=== PATIENT | female | born 1960 | race Caucasian/White ===

== ENCOUNTER 2018-01-20 21:02 | Inpatient (IN) | payer MEDICAID ==
[~2018-01-20] VITALS: Ht 154.9 cm; Wt 82.0 kg
[2018-01-20 21:46] VITALS: BP 171/77; PULSE 75; RESP 16; TEMP 98.2; O2SAT 100
[2018-01-20] MEDS ORDERED: METF500T PO (23:42)
[2018-01-20] MEDS ORDERED: GLIM2TAB PO (23:42)
[2018-01-20 23:51] VITALS: BP 188/86; PULSE 76; RESP 20; O2SAT 99
[2018-01-21] VITALS (10 sets, daily range): BP systolic 113–144; BP diastolic 57–78; PULSE 80–105; RESP 17–20; TEMP 98–99.5; O2SAT 92–99
[2018-01-21] MEDS ORDERED: SODIUM CHLOR 0.9% 1000 ML INJ 1,000 ML IV ONE
[2018-01-21] MEDS ORDERED: FAMOTIDINE 20 MG/2 ML VIAL IV PUSH SCH
[2018-01-21 00:26] LABS: AUTOMATED NEUTROPHIL # 9.5 TH/MM3 (1.8-7.7); BASOPHIL # 0.1 TH/MM3 (0-0.2); BASOPHIL % 0.6 % (0.0-2.0); EOSINOPHIL # 0.1 TH/MM3 (0-0.4); EOSINOPHIL % 0.6 % (0.0-4.0); HEMATOCRIT 44.2 % (35.0-46.0); HEMOGLOBIN 15.2 GM/DL (11.6-15.3); LYMPHOCYTE # 2.3 TH/MM3 (1.0-4.8); MEAN CELL VOLUME 86.1 FL (80.0-100.0); MEAN CORPUSCULAR HEMOGLOBIN 29.7 PG (27.0-34.0); MEAN CORPUSCULAR HGB CONC 34.4 % (32.0-36.0); MEAN PLATELET VOLUME 10.2 FL (7.0-11.0); MONO % 5.4 % (0.0-8.0); MONOCYTE # 0.7 TH/MM3 (0-0.9); NEUT % 75.4 % (16.0-70.0); PLATELET COUNT 306 TH/MM3 (150-450); RED BLOOD COUNT 5.14 MIL/MM3 (4.00-5.30); RED CELL DISTRIBUTION WIDTH 14.3 % (11.6-17.2); WHITE BLOOD COUNT 12.5 TH/MM3 (4.0-11.0)
[2018-01-21 00:37] LABS: ALBUMIN 3.9 GM/DL (3.4-5.0); ALT (GPT) 29 U/L (10-53); AST (GOT) 16 U/L (15-37); BICARBONATE 26.9 MEQ/L (21.0-32.0); BLOOD UREA NITROGEN 14 MG/DL (7-18); CALCIUM 9.4 MG/DL (8.5-10.1); CHLORIDE 101 MEQ/L (98-107); CREATININE 0.81 MG/DL (0.50-1.00); GLOMERULAR FILTRATION RATE 73 ML/MIN (>89); GLUCOSE,RANDOM 227 MG/DL (74-106); SODIUM (NA) 139 MEQ/L (136-145)
[2018-01-21 00:41] LABS: ALKALINE PHOSPHATASE 156 U/L (45-117); TOTAL BILIRUBIN ADULT 0.4 MG/DL (0.2-1.0); TOTAL PROTEIN 7.9 GM/DL (6.4-8.2); TROPONIN I LESS THAN 0.02 NG/ML (0.02-0.05)
[2018-01-21] MEDS ORDERED: MORPHINE SULFATE 4 MG/ML INJ IV PUSH ONE ×2 (00:45→09:30)
--- NOTE | 2018-01-21 00:52 | PD ---
HPI Chief Complaint: Abdominal Pain Time Seen by Provider: 23:33 Travel History International Travel<30 days: No Contact w/Intl Traveler<30days: No Traveled to known affect area: No History of Present Illness HPI Patient is a 57-year-old female who woke up this morning and had epigastric pain that was constant continuous all day long she took Tums it did not alleviate her pain. She has no history of gastritis or GERD she does not take omeprazole on a daily basis and she has never had an issue with this before. She denies pancreatitis history she denies gallbladder history she denies trauma she has no diarrhea she has not moved her bowels today. Pain is burning severe and she feels nausea she vomited in triage and she said she vomited a few times today. She has no surgical history on her abdomen she has diabetes metformin and sulfonylurea pill otherwise she is healthy and without significant systemic illness. Pain is severe 10 out of 10 when it comes and it is squeezing like epigastric pain she has not seen another doctor for this and the Tums did not relieve her pain PFSH Past Medical History Diabetes: Yes (DMII) Patient Takes Glucophage: No ?: Not Past Surgical History Surgical History: No Previous Surgery Social History Alcohol Use: No Tobacco Use: No Substance Use: No Allergies-Medications (Allergen,Severity, Reaction): Coded Allergies: Penicillins (Verified Allergy, Unknown, 01/20/18) pt states its been decades, unsure of reaction. Reported Meds & Prescriptions Reported Meds & Active Scripts Active Pepcid (Famotidine) 20 Mg Tab 20 Mg PO BID Zofran Odt (Ondansetron Odt) 4 Mg Tab 4 Mg SL Q6HR PRN Reported Glimepiride 2 Mg Tab 2 Mg PO BIDAC Metformin (Metformin HCl) 500 Mg Tab 500 Mg PO BIDPC Review of Systems Except as stated in HPI: all other systems reviewed are Neg Physical Exam Narrative GENERAL: Patient appears to be in pain and has epigastric periumbilical pain SKIN: Warm and dry. Mildly diaphoretic HEAD: Atraumatic. Normocephalic. EYES: Pupils equal and round. No scleral icterus. No injection or drainage. ENT: No nasal bleeding or discharge. Mucous membranes pink and moist. NECK: Trachea midline. No JVD. CARDIOVASCULAR: Regular rate and rhythm. RESPIRATORY: No accessory muscle use. Clear to auscultation. Breath sounds equal bilaterally. GASTROINTESTINAL: Abdomen tender epigastric and periumbilical pain soft, mildly obese nondistended. Hepatic and splenic margins not palpable. MUSCULOSKELETAL: Extremities without clubbing, cyanosis, or edema. No obvious deformities. NEUROLOGICAL: Awake and alert. No obvious cranial nerve deficits. Motor grossly within normal limits. Five out of 5 muscle strength in the arms and legs. Normal speech. PSYCHIATRIC: Appropriate mood and affect; insight and judgment normal. Data Data Last Documented VS Vital Signs Date Time Temp Pulse Resp B/P (MAP) Pulse Ox O2 Delivery O2 Flow Rate FiO2 01/21/18 10:02 85 20 113/57 (75) 92 Room Air 01/20/18 21:46 98.2 Orders Orders Famotidine Inj (Pepcid Inj) (01/21/18 00:00) Ondansetron Inj (Zofran Inj) (01/21/18 00:00) Sodium Chlor 0.9% 1000 Ml Inj (Ns 1000 M (01/21/18 00:00) Electrocardiogram (01/20/18 23:54) Complete Blood Count With Diff (01/20/18 23:54) Comprehensive Metabolic Panel (01/20/18 23:54) Lipase (01/20/18 23:54) Troponin I (01/21/18 00:04) Morphine Inj (Morphine Inj) (01/21/18 00:45) Abdomen, Flat & Upright (01/21/18 ) Lactulose Liq (Lactulose Liq) (01/21/18 01:45) Diatrizoate Liq ( Gastroview Liq) (01/21/18 01:45) Ct Abd/Pel W Iv Contrast(Rout) (01/21/18 ) Oral Contrast - Adult (01/21/18 01:57) Ondansetron Inj (Zofran Inj) (01/21/18 02:45) Ketorolac Inj (Toradol Inj) (01/21/18 04:30) Urinalysis - C+S If Indicated (01/21/18 04:27) Iohexol 350 Inj (Omnipaque 350 Inj) (01/21/18 04:50) Urine Culture (01/21/18 04:32) Us Abdomen Gallbladder (01/21/18 ) Ciprofloxacin 400 Mg Premix (Cipro 400 M (01/21/18 09:30) Metronidazole 500 Mg Inj (Flagyl 500 Mg (01/21/18 09:30) Morphine Inj (Morphine Inj) (01/21/18 09:30) Admit Order (Ed Use Only) (01/21/18 ) Vital Signs (Adult) Q4H (01/21/18 10:12) Diet Npo (01/21/18 Lunch) Activity Oob With Assistance (01/21/18 10:12) Comprehensive Metabolic Panel (01/22/18 06:00) Free Thyroxine (T4) (01/22/18 06:00) Hemoglobin (Hgb) A1c (01/22/18 06:00) Magnesium (Mg) (01/22/18 06:00) Phosphorus (Po4) (01/22/18 06:00) Thyroid Stimulating Hormone (01/22/18 06:00) Complete Blood Count With Diff (01/22/18 06:00) Bedside Glucose FELIPE.CSUGAR&03 (01/21/18 10:14) Blood Glucose Goal (Criteria) (01/21/18 10:14) Hypoglycemia 70 Mg/Dl Or < (01/21/18 10:14) Notify Dr: Other (01/21/18 10:14) Dextrose 50% In [place]ucky (Vial) Inj (D50w (Vi (01/21/18 10:15) Glucagon Inj (Glucagon Inj) (01/21/18 10:15) Case Management Consult (01/21/18 ) Insulin Aspart Supplemtl Scale (Novolog (01/21/18 12:00) Labs Laboratory Tests Test 01/21/18 00:04 01/21/18 04:32 White Blood Count 12.5 TH/MM3 Red Blood Count 5.14 MIL/MM3 Hemoglobin 15.2 GM/DL Hematocrit 44.2 % Mean Corpuscular Volume 86.1 FL Mean Corpuscular Hemoglobin 29.7 PG Mean Corpuscular Hemoglobin Concent 34.4 % Red Cell Distribution Width 14.3 % Platelet Count 306 TH/MM3 Mean Platelet Volume 10.2 FL Neutrophils (%) (Auto) 75.4 % Lymphocytes (%) (Auto) 18.0 % Monocytes (%) (Auto) 5.4 % Eosinophils (%) (Auto) 0.6 % Basophils (%) (Auto) 0.6 % Neutrophils # (Auto) 9.5 TH/MM3 Lymphocytes # (Auto) 2.3 TH/MM3 Monocytes # (Auto) 0.7 TH/MM3 Eosinophils # (Auto) 0.1 TH/MM3 Basophils # (Auto) 0.1 TH/MM3 CBC Comment DIFF FINAL Differential Comment Blood Urea Nitrogen 14 MG/DL Creatinine 0.81 MG/DL Random Glucose 227 MG/DL Total Protein 7.9 GM/DL Albumin 3.9 GM/DL Calcium Level 9.4 MG/DL Alkaline Phosphatase 156 U/L Aspartate Amino Transf (AST/SGOT) 16 U/L Alanine Aminotransferase (ALT/SGPT) 29 U/L Total Bilirubin 0.4 MG/DL Sodium Level 139 MEQ/L Potassium Level 4.3 MEQ/L Chloride Level 101 MEQ/L Carbon Dioxide Level 26.9 MEQ/L Anion Gap 11 MEQ/L Estimat Glomerular Filtration Rate 73 ML/MIN Troponin I LESS THAN 0.02 NG/ML Lipase 98 U/L Urine Color LIGHT-YELLOW Urine Turbidity HAZY Urine pH 7.0 Urine Specific [place] 1.014 Urine Protein NEG mg/dL Urine Glucose (UA) 300 mg/dL Urine Ketones 40 mg/dL Urine Occult Blood NEG Urine Nitrite NEG Urine Bilirubin NEG Urine Urobilinogen LESS THAN 2.0 MG/DL Urine Leukocyte Esterase MOD Urine RBC 1 /hpf Urine WBC 3 /hpf Urine Squamous Epithelial Cells 2 /hpf Urine Bacteria MANY /hpf Urine Mucus FEW /lpf Microscopic Urinalysis Comment CULTURE INDICATED MDM Medical Decision Making Medical Screen Exam Complete: Yes Emergency Medical Condition: Yes Differential Diagnosis Differential diagnosis includes pancreatitis, gastritis,, cholecystitis, enteric adenitis, colitis mesenteric adenitis other Narrative Course CT negative for pathology and no pancreatic or GB disease found . Alk Phos minimally elevated , pt jet be discharged with zofran Rx and pepcid PO and close follow up as outpt Diagnosis Primary Impression: Abdominal pain Qualified Codes: R10.9 - Unspecified abdominal pain Admitting Information Admitting Physician Requests: Admit Patient Instructions: Abdominal Pain (ED), General Instructions Scripts Famotidine (Pepcid) 20 Mg Tab 20 MG PO BID, #20 TAB 0 Refills Prov: Cesar Cline MD 01/21/18 Ondansetron Odt (Zofran Odt) 4 Mg Tab 4 MG SL Q6HR Y for Nausea/Vomiting, #12 TAB 0 Refills Prov: Cesar Cline MD 01/21/18 Condition: Stable Cesar Cline MD Jan 21, 2018 00:52
--- NOTE | 2018-01-21 00:59 | RADRPT ---
EXAM DATE/TIME: 01/21/2018 00:43 [facility] COMPARISON: No previous studies available for comparison. INDICATIONS : Abdominal pain. Nausea. MEDICAL HISTORY : None. SURGICAL HISTORY : None. ENCOUNTER: Initial ACUITY: 1 day PAIN SCORE: 8/10 LOCATION: abdomen. FINDINGS: Supine and upright views of the abdomen were performed. The abdominal bowel gas pattern is normal. No air fluid levels are seen. No abnormal masses, calcifications, or organomegaly is seen. The visu alized lower lungs are clear. No evidence of free intraperitoneal gas. The osseous structures are u nremarkable. CONCLUSION: No dilated loops of small or large bowel. Dioni Ochoa MD on January 21, 2018 at 0:56 Board Certified Radiologist. This report was verified electronically.
[2018-01-21] MEDS ORDERED: DIATRIZOATE MEGLUM/DIATRIZOATE SOD 9 ML CUP PO ONE (01:45)
[2018-01-21] MEDS ORDERED: LACTULOSE SYRUP 20 GM/30 ML CUP PO ONE (01:45)
[2018-01-21] MEDS ORDERED: ONDANSETRON HCL 4 MG/2 ML VIAL IV PUSH ONE ×2 (02:45)
--- NOTE | 2018-01-21 04:23 | RADRPT ---
EXAM DATE/TIME: 01/21/2018 03:57 [facility] COMPARISON: ABDOMEN FLAT & UPRIGHT, January 21, 2018, 0:43. INDICATIONS : Abdomen pain. IV CONTRAST: 100 cc Omnipaque 350 (iohexol) IV ORAL CONTRAST: Partial prescribed oral contrast ingested. RADIATION DOSE: 8.52 CTDIvol (mGy) MEDICAL HISTORY : None SURGICAL HISTORY : None. ENCOUNTER: Initial ACUITY: 1 day PAIN SCALE: 8/10 LOCATION: Bilateral abdomen TECHNIQUE: Volumetric scanning of the abdomen and pelvis was performed. Using automated exposure control and ad justment of the mA and/or kV according to patient size, radiation dose was kept as low as reasonably achievable to obtain optimal diagnostic quality images. DICOM format image data is available electro nically for review and comparison. FINDINGS: LOWER LUNGS: The visualized lower lungs are clear. LIVER: Homogeneous density without lesion. There is no dilation of the biliary tree. No calcified gallston es. SPLEEN: Normal size without lesion. PANCREAS: Within normal limits. KIDNEYS: Normal in size and shape. There is no mass, stone or hydronephrosis. ADRENAL GLANDS: Within normal limits. VASCULAR: There is no aortic aneurysm. BOWEL/MESENTERY: The stomach, small bowel, and colon demonstrate no acute abnormality. There is no free intraperitone al air or fluid. ABDOMINAL WALL: Within normal limits. RETROPERITONEUM: There is no lymphadenopathy. BLADDER: No wall thickening or mass. REPRODUCTIVE: Within normal limits. INGUINAL: There is no lymphadenopathy or hernia. MUSCULOSKELETAL: Within normal limits for patient age. CONCLUSION: 1. Negative CT abdomen/pelvis with contrast. Dioni Ochoa MD on January 21, 2018 at 4:19 Board Certified Radiologist. This report was verified electronically.
[2018-01-21] MEDS ORDERED: KETOROLAC TROMETHAMINE 30 MG/ML (IVP) VIAL IV PUSH ONE (04:30)
[2018-01-21] MEDS ORDERED: IOHEXOL 350 MG/ML 10 ML VIAL (for RAD DIAG) IVCONTRAST ONE (04:50)
[2018-01-21 04:53] LABS: BACTERIA, URINE MANY /hpf; BILIRUBIN, URINE NEG (NEG); BLOOD, URINE NEG (NEG); GLUCOSE,URINE 300 mg/dL (NEG); KETONE, URINE 40 mg/dL (NEG); MUCUS URINE FEW /lpf (OCC); NITRITE,URINE NEG (NEG); SQUAMOUS EPITHELIAL CELL URINE 2 /hpf (0-5); URINE COLOR LIGHT-YELLOW (YELLW/STRAW); URINE LEUKOCYTE ESTERASE MOD (NEG)
[2018-01-21] MEDS ORDERED: FAMO1TAB37 PO (05:19)
[2018-01-21] MEDS ORDERED: ZOFR4TAB3 SL (05:19)
--- NOTE | 2018-01-21 08:14 | PD ---
Data Data Last Documented VS Vital Signs Date Time Temp Pulse Resp B/P (MAP) Pulse Ox O2 Delivery O2 Flow Rate FiO2 01/21/18 10:02 85 20 113/57 (75) 92 Room Air 01/20/18 21:46 98.2 Orders Orders Famotidine Inj (Pepcid Inj) (01/21/18 00:00) Ondansetron Inj (Zofran Inj) (01/21/18 00:00) Sodium Chlor 0.9% 1000 Ml Inj (Ns 1000 M (01/21/18 00:00) Electrocardiogram (01/20/18 23:54) Complete Blood Count With Diff (01/20/18 23:54) Comprehensive Metabolic Panel (01/20/18 23:54) Lipase (01/20/18 23:54) Troponin I (01/21/18 00:04) Morphine Inj (Morphine Inj) (01/21/18 00:45) Abdomen, Flat & Upright (01/21/18 ) Lactulose Liq (Lactulose Liq) (01/21/18 01:45) Diatrizoate Liq ( Gastroview Liq) (01/21/18 01:45) Ct Abd/Pel W Iv Contrast(Rout) (01/21/18 ) Oral Contrast - Adult (01/21/18 01:57) Ondansetron Inj (Zofran Inj) (01/21/18 02:45) Ketorolac Inj (Toradol Inj) (01/21/18 04:30) Urinalysis - C+S If Indicated (01/21/18 04:27) Iohexol 350 Inj (Omnipaque 350 Inj) (01/21/18 04:50) Urine Culture (01/21/18 04:32) Us Abdomen Gallbladder (01/21/18 ) Ciprofloxacin 400 Mg Premix (Cipro 400 M (01/21/18 09:30) Metronidazole 500 Mg Inj (Flagyl 500 Mg (01/21/18 09:30) Morphine Inj (Morphine Inj) (01/21/18 09:30) Admit Order (Ed Use Only) (01/21/18 ) Vital Signs (Adult) Q4H (01/21/18 10:12) Diet Npo (01/21/18 Lunch) Activity Oob With Assistance (01/21/18 10:12) Comprehensive Metabolic Panel (01/22/18 06:00) Free Thyroxine (T4) (01/22/18 06:00) Hemoglobin (Hgb) A1c (01/22/18 06:00) Magnesium (Mg) (01/22/18 06:00) Phosphorus (Po4) (01/22/18 06:00) Thyroid Stimulating Hormone (01/22/18 06:00) Complete Blood Count With Diff (01/22/18 06:00) Bedside Glucose FELIPE.CSUGAR&03 (01/21/18 10:14) Blood Glucose Goal (Criteria) (01/21/18 10:14) Hypoglycemia 70 Mg/Dl Or < (01/21/18 10:14) Notify Dr: Other (01/21/18 10:14) Dextrose 50% In [place] (Vial) Inj (D50w (Vi (01/21/18 10:15) Glucagon Inj (Glucagon Inj) (01/21/18 10:15) Case Management Consult (01/21/18 ) Insulin Aspart Supplemtl Scale (Novolog (01/21/18 12:00) Consult General Surgery (01/21/18 ) Labs Laboratory Tests Test 01/21/18 00:04 01/21/18 04:32 White Blood Count 12.5 TH/MM3 Red Blood Count 5.14 MIL/MM3 Hemoglobin 15.2 GM/DL Hematocrit 44.2 % Mean Corpuscular Volume 86.1 FL Mean Corpuscular Hemoglobin 29.7 PG Mean Corpuscular Hemoglobin Concent 34.4 % Red Cell Distribution Width 14.3 % Platelet Count 306 TH/MM3 Mean Platelet Volume 10.2 FL Neutrophils (%) (Auto) 75.4 % Lymphocytes (%) (Auto) 18.0 % Monocytes (%) (Auto) 5.4 % Eosinophils (%) (Auto) 0.6 % Basophils (%) (Auto) 0.6 % Neutrophils # (Auto) 9.5 TH/MM3 Lymphocytes # (Auto) 2.3 TH/MM3 Monocytes # (Auto) 0.7 TH/MM3 Eosinophils # (Auto) 0.1 TH/MM3 Basophils # (Auto) 0.1 TH/MM3 CBC Comment DIFF FINAL Differential Comment Blood Urea Nitrogen 14 MG/DL Creatinine 0.81 MG/DL Random Glucose 227 MG/DL Total Protein 7.9 GM/DL Albumin 3.9 GM/DL Calcium Level 9.4 MG/DL Alkaline Phosphatase 156 U/L Aspartate Amino Transf (AST/SGOT) 16 U/L Alanine Aminotransferase (ALT/SGPT) 29 U/L Total Bilirubin 0.4 MG/DL Sodium Level 139 MEQ/L Potassium Level 4.3 MEQ/L Chloride Level 101 MEQ/L Carbon Dioxide Level 26.9 MEQ/L Anion Gap 11 MEQ/L Estimat Glomerular Filtration Rate 73 ML/MIN Troponin I LESS THAN 0.02 NG/ML Lipase 98 U/L Urine Color LIGHT-YELLOW Urine Turbidity HAZY Urine pH 7.0 Urine Specific [place] 1.014 Urine Protein NEG mg/dL Urine Glucose (UA) 300 mg/dL Urine Ketones 40 mg/dL Urine Occult Blood NEG Urine Nitrite NEG Urine Bilirubin NEG Urine Urobilinogen LESS THAN 2.0 MG/DL Urine Leukocyte Esterase MOD Urine RBC 1 /hpf Urine WBC 3 /hpf Urine Squamous Epithelial Cells 2 /hpf Urine Bacteria MANY /hpf Urine Mucus FEW /lpf Microscopic Urinalysis Comment CULTURE INDICATED MDM Medical Record Reviewed: Yes Supervised Visit with LUIS ALBERTO: No Narrative Course CBC & BMP Diagram 01/21/18 00:04 Total Protein 7.9, Albumin 3.9, Calcium Level 9.4, Alkaline Phosphatase 156 H, Aspartate Amino Transf (AST/SGOT) 16, Alanine Aminotransferase (ALT/SGPT) 29, Total Bilirubin 0.4 Lipase is normal Troponins less than 0.02 EKG shows moderate leukocyte esterase Last Impressions Abdomen/Pelvis CT 01/21/18 0000 Signed Impressions: Service Date/Time: December 03:57 - CONCLUSION: 1. Negative CT abdomen/pelvis with contrast. Dioni Ochoa MD Abdomen X-Ray 01/21/18 0000 Signed Impressions: Service Date/Time: December 00:43 - CONCLUSION: No dilated loops of small or large bowel. Dioni Ochoa MD Please refer to the outgoing provider note. Ultrasound shows acute cholecystitis. Cipro Flagyl started. Morphine given. General surgery consultation placed. The patient will be admitted to the hospitalist service for IV fluids and antibiotics. General surgery consult placed. d/w Dr Campbell Diagnosis Primary Impression: Abdominal pain Qualified Codes: R10.9 - Unspecified abdominal pain Additional Impression: Cholecystitis Admitting Information Admitting Physician Requests: Admit Patient Instructions: General Instructions, Abdominal Pain (ED) Departure Forms: Tests/Procedures Scripts Famotidine (Pepcid) 20 Mg Tab 20 MG PO BID, #20 TAB 0 Refills Prov: Cesar Cline MD 01/21/18 Ondansetron Odt (Zofran Odt) 4 Mg Tab 4 MG SL Q6HR Y for Nausea/Vomiting, #12 TAB 0 Refills Prov: Cesar Cline MD 01/21/18 Quinn Willard MD Jan 21, 2018 08:14
[2018-01-21] MEDS ORDERED: metroNIDAZOLE 500 MG INJ 100 ML IV ONE (09:30)
[2018-01-21] MEDS ORDERED: CIPROFLOXACIN 400 MG PREMIX 200 ML IV ONE (09:30)
--- NOTE | 2018-01-21 09:34 | RADRPT ---
EXAM DATE/TIME: 01/21/2018 08:39 [facility] COMPARISON: CT ABDOMEN & PELVIS W CONTRAST, January 21, 2018, 3:57. INDICATIONS : Epigastric pain this morning. MEDICAL HISTORY : Diabetes. SURGICAL HISTORY : None. ENCOUNTER: Initial ACUITY: 1 day PAIN SCORE: 9/10 LOCATION: Epigastric. MEASUREMENTS: LIVER: 16.4 cm length COMMON DUCT: 7 mm RIGHT KIDNEY: 10.4 x 5.3 x 4.7 cm FINDINGS: LIVER: Mild hepatomegaly is noted Normal echotexture without focal lesion or ductal dilatation. COMMON DUCT: No intraluminal mass or stone visualized. GALLBLADDER: The gallbladder contains multiple stones. The wall the gallbladder is minimally thickened. The patien t demonstrates a positive sonographic Watts's sign. No pericholecystic fluid is noted. If there is c linical concern for acute cholecystitis, a hepatobiliary scan may be helpful to confirm cystic duct o bstruction. PANCREAS: The visualized portions are within normal limits. RIGHT KIDNEY: No evidence of hydronephrosis, stone, or mass. CONCLUSION: 1. Gallbladder wall thickening and positive sonographic Watts's sign suggestive of acute cholecystit is. A hepatobiliary scan may be helpful to confirm cystic duct obstruction if clinical indicated. 2. Cholelithiasis. 3. Mild hepatomegaly. Jim Vilchis MD on January 21, 2018 at 9:27 Board Certified Radiologist. This report was verified electronically.
[2018-01-21] MEDS ORDERED: SODIUM CHLORIDE 0.9% FLUSH 10 ML FLUSH IV FLUSH PRN (10:15)
[2018-01-21] MEDS ORDERED: DEXTROSE 50% IN WATER 50 ML VIAL(D50) IV PUSH PRN (10:15)
[2018-01-21] MEDS ORDERED: NALOXONE HCL 0.4 MG/ML AMP IV PUSH PRN (10:15)
[2018-01-21] MEDS ORDERED: TEMAZEPAM 15 MG CAP PO PRN (10:15)
[2018-01-21] MEDS ORDERED: GLUCAGON 1 MG/ML VIAL OTHER PRN (10:15)
[2018-01-21] MEDS ORDERED: METOCLOPRAMIDE HCL 10 MG/2 ML VIAL IV PUSH PRN (10:15)
[2018-01-21] MEDS ORDERED: BISACODYL 10 MG SUPP RECTAL PRN (10:15)
[2018-01-21] MEDS ORDERED: oxyCODONE/ACETAMINOPHEN 5 MG/325 MG TAB PO PRN (10:15)
[2018-01-21] MEDS ORDERED: ACETAMINOPHEN 325 MG TAB PO PRN ×2 (10:15)
[2018-01-21] MEDS ORDERED: MAGNESIUM HYDROXIDE SUSP 30 ML CUP PO PRN (10:15)
[2018-01-21] MEDS ORDERED: LACTULOSE SYRUP 20 GM/30 ML CUP PO PRN (10:15)
[2018-01-21] MEDS ORDERED: SENNOSIDES 8.6 MG TAB PO PRN (10:15)
[2018-01-21] MEDS ORDERED: ONDANSETRON HCL 4 MG/2 ML VIAL IVP PRN (10:15)
--- NOTE | 2018-01-21 11:36 | HHI.HP ---
[facility] Service [facility] Primary Care Physician No Primary Care Physician Admission Diagnosis Cholecystitis; UTI Diagnoses: (1) Diabetes mellitus Diagnosis: Secondary (2) Abdominal pain Diagnosis: Principal (3) Cholecystitis Diagnosis: Principal Chief Complaint: Abdominal pain Travel History International Travel<30 Days: No Contact w/Intl Traveler <30 Da: No Traveled to Known Affected Are: No History of Present Illness Patient is a 57-year-old female. Who woke up early yesterday morning and had some epigastric pain that was constant continuous all day Yesterday. She then took Tums, which did not help her. She has no history of gastritis. She does not take any omeprazole or anything like that. She has never had any issue with this before. Denies any pancreatitis. Denies any gallbladder issues prior to now. She denies any trauma. She has no diarrhea. Has not had any bowel movements yesterday. Pain is a burning severe and some nausea and some vomiting. Had some vomiting yesterday. Denies any surgical history patient has a history of diabetes mellitus with metformin and glyburide daily Was found to have cholecystitis on ultrasound and general surgery will be consult. We will keep her n.p.o. Review of Systems Constitutional: DENIES: Diaphoretic episodes, Fatigue, Fever, Weight gain, Weight loss, Chills, Dizziness, Change in appetite, Night Sweats Endocrine: DENIES: Abnorml menstrual pattern, Heat/cold intolerance, Polydipsia , Polyuria, Polyphagia Eyes: DENIES: Blurred vision, Diplopia, Eye inflammation, Eye pain, Vision loss , Photosensitivity, Double Vision Ears, nose, mouth, throat: DENIES: Tinnitus, Hearing loss, Vertigo, Nasal discharge, Oral lesions, Throat pain, Hoarseness, Ear Pain, Running Nose, Epistaxis, Sinus Pain, Toothache, Odynophagia Respiratory: DENIES: Apneas, Cough, Snoring, Wheezing, Hemoptysis, Sputum production, Shortness of breath Cardiovascular: DENIES: Chest pain, Palpitations, Syncope, Dyspnea on Exertion , PND, Lower Extremity Edema, Orthopnea Gastrointestinal: COMPLAINS OF: Abdominal pain, Nausea, Vomiting, DENIES: Black stools, Bloody stools, Constipation, Diarrhea Genitourinary: DENIES: Abnormal vaginal bleeding, Dysmenorrhea, Dyspareunia, Sexual dysfunction, Urgency, Hematuria Musculoskeletal: DENIES: Joint pain, Muscle aches, Stiffness, Joint Swelling Integumentary: DENIES: Abnormal pigmentation, Pruritus, Rash, Nail changes, Breast masses Hematologic/lymphatic: DENIES: Bruising, Lymphadenopathy Immunologic/allergic: DENIES: Eczema, Urticaria Neurologic: DENIES: Abnormal gait, Headache, Localized weakness, Paresthesias, Seizures, Speech Problems Psychiatric: DENIES: Anxiety, Confusion, Mood changes, Depression, Hallucinations, Agitation, Suicidal Ideation, Delusions Except as stated in HPI: all other systems reviewed are Neg Past Family Social History Past Medical History Diabetes mellitus on oral glycemic medication Past Surgical History Denies Reported Medications Reported Meds & Active Scripts Active Pepcid (Famotidine) 20 Mg Tab 20 Mg PO BID Zofran Odt (Ondansetron Odt) 4 Mg Tab 4 Mg SL Q6HR PRN Reported Glimepiride 2 Mg Tab 2 Mg PO BIDAC Metformin (Metformin HCl) 500 Mg Tab 500 Mg PO BIDPC Allergies: Coded Allergies: Penicillins (Verified Allergy, Unknown, 01/20/18) pt states its been decades, unsure of reaction. Active Ordered Medications Current Medications Famotidine (Pepcid Inj) 20 mg ONCE IV PUSH Last administered on 01/20/18at 23:59 ; Start 01/21/18 at 00:00 Ondansetron HCl (Zofran Inj) 4 mg ONCE ONCE IV PUSH Last administered on at 23:59; Start 01/21/18 at 00:00; Stop 01/21/18 at 00:01; Status DC Sodium Chloride 1,000 ml @ 999 mls/hr BOLUS ONCE IV Last administered on 01/20at 23:59; Start 01/21/18 at 00:00; Stop 01/21/18 at 01:00; Status DC Morphine Sulfate (Morphine Inj) 2 mg ONCE ONCE IV PUSH Last administered on at 01:18; Start 01/21/18 at 00:45; Stop 01/21/18 at 00:46; Status DC Lactulose (Lactulose Liq) 30 ml ONCE ONCE PO Last administered on 01/21/18at 02 :03; Start 01/21/18 at 01:45; Stop 01/21/18 at 01:48; Status DC Diatrizoate Meglum/ Diatrizoate Sod (Md Person Liq) 18 ml ONCE ONCE PO Last administered on 01/21/18at 02:03; Start 01/21/18 at 01:45; Stop 01/21/18 at 01:48; Status DC Ondansetron HCl (Zofran Inj) 4 mg ONCE ONCE IV PUSH Last administered on at 02:41; Start 01/21/18 at 02:45; Stop 01/21/18 at 02:46; Status DC Ketorolac Tromethamine (Toradol Inj) 30 mg ONCE ONCE IV PUSH Last administered on 01/21/18at 04:34; Start 01/21/18 at 04:30; Stop 01/21/18 at 04:31 ; Status DC Iohexol (Omnipaque 350 Inj) 100 ml STK-MED ONCE IVCONTRAST Last administered on 01/21/18at 04:50; Start 01/21/18 at 04:50; Stop 01/21/18 at 04:51; Status DC Ciprofloxacin/ Dextrose 200 ml @ 200 mls/hr ONCE ONCE IV Last administered on 01/21/18at 09:54; Start 01/21/18 at 09:30; Stop 01/21/18 at 10:29; Status DC Metronidazole 100 ml @ 100 mls/hr ONCE ONCE IV ; Start 01/21/18 at 09:30; Stop 01/21/18 at 10:29; Status DC Morphine Sulfate (Morphine Inj) 4 mg ONCE ONCE IV PUSH Last administered on at 09:55; Start 01/21/18 at 09:30; Stop 01/21/18 at 09:31; Status DC Dextrose (D50w (Vial) Inj) 50 ml UNSCH PRN IV PUSH HYPOGLYCEMIA-SEE COMMENTS; Start 01/21/18 at 10:15 Glucagon (Glucagon Inj) 1 mg UNSCH PRN OTHER HYPOGLYCEMIA-SEE COMMENTS; Start 01/21/18 at 10:15 Insulin Aspart (NovoLOG SUPPLEMENTAL SCALE) 1 ACHS SLIDING SCALE SQ ; Start at 12:00 Sodium Chloride 1,000 ml @ 100 mls/hr Q10H IV ; Start 01/21/18 at 10:14 Sodium Chloride (NS Flush) 2 ml UNSCH PRN IV FLUSH FLUSH AFTER USING IV ACCESS ; Start 01/21/18 at 10:15 Sodium Chloride (NS Flush) 2 ml BID IV FLUSH ; Start 01/21/18 at 21:00 Acetaminophen (Tylenol) 650 mg Q4H PRN PO TEMP > 100.4; Start 01/21/18 at 10:15 Ondansetron HCl (Zofran Inj) 4 mg Q6H PRN IVP NAUSEA OR VOMITING; Start at 10:15 Metoclopramide HCl (Reglan Inj) 5 mg Q6H PRN IV PUSH NAUSEA OR VOMITING; Start 01/21/18 at 10:15 Temazepam (Restoril) 15 mg HS PRN PO INSOMNIA; Start 01/21/18 at 10:15 Acetaminophen (Tylenol) 650 mg Q6H PRN PO PAIN SCALE 1 TO 2; Start 01/21/18 at 10:15 Oxycodone/ Acetaminophen (Percocet 5-325 Mg) 1 tab Q6H PRN PO PAIN SCALE 3 TO 5; Start 01/21/18 at 10:15 Oxycodone/ Acetaminophen (Percocet 10-325 Mg) 1 tab Q6H PRN PO PAIN SCALE 6 TO 10; Start 01/21/18 at 10:15 Morphine Sulfate (Morphine Inj) 2 mg Q3H PRN IV PUSH Pain 3-5; if unable to take PO; Start 01/21/18 at 10:15 Morphine Sulfate (Morphine Inj) 4 mg Q3H PRN IV PUSH Pain 6-10;if unable to take PO; Start 01/21/18 at 10:15 Morphine Sulfate (Morphine Inj) 4 mg Q3H PRN IV PUSH BREAKTHROUGH PAIN; Start 01/21/18 at 10:15 Naloxone HCl (Narcan Inj) 0.4 mg UNSCH PRN IV PUSH SEE LABEL COMMENTS; Start at 10:15 Senna/Docusate Sodium (Joi-Colace) 1 tab BID PO ; Start 01/21/18 at 21:00 Magnesium Hydroxide (Milk Of Magnesia Liq) 30 ml Q12H PRN PO Mild constipation ; Start 01/21/18 at 10:15 Sennosides (Senokot) 17.2 mg Q12H PRN PO Moderate constipation; Start 01/21/18 at 10:15 Bisacodyl (Dulcolax Supp) 10 mg DAILY PRN RECTAL SEVERE CONSITIPATION; Start at 10:15 Lactulose (Lactulose Liq) 30 ml DAILY PRN PO SEVERE CONSITIPATION; Start at 10:15 Family History Mother of old age and COPD Father with diabetes hypertension heart disease and multiple amputation Social History Denies any tobacco, alcohol, or illicits Physical Exam Vital Signs Vital Signs Date Time Temp Pulse Resp B/P (MAP) Pulse Ox O2 Delivery O2 Flow Rate FiO2 01/21/18 10:02 85 20 113/57 (75) 92 Room Air 01/21/18 05:29 01/21/18 04:42 86 18 144/78 (100) 99 Room Air 01/21/18 02:43 80 20 143/76 (98) 98 Room Air 01/20/18 23:51 76 20 188/86 (120) 99 Room Air 01/20/18 21:46 98.2 75 16 171/77 (108) 100 Physical Exam GENERAL: This is a well-nourished, well-developed patient, in no apparent distress. SKIN: No rashes, ecchymoses or lesions. Cool and dry. HEAD: Atraumatic. Normocephalic. No temporal or scalp tenderness. EYES: Pupils equal round and reactive. Extraocular motions intact. No scleral icterus. No injection or drainage. ENT: Nose without bleeding, purulent drainage or septal hematoma. Throat without erythema, tonsillar hypertrophy or exudate. Uvula midline. Airway patent. NECK: Trachea midline. No JVD or lymphadenopathy. Supple, nontender, no meningeal signs. CARDIOVASCULAR: Regular rate and rhythm without murmurs, gallops, or rubs. S1- S2 no S3-S4 RESPIRATORY: Clear to auscultation. Breath sounds equal bilaterally. No wheezes , rales, or rhonchi. GASTROINTESTINAL: Abdomen soft, non-tender, nondistended. No hepato-splenomegaly , or palpable masses. No guarding. Mild tenderness in the right upper quadrant MUSCULOSKELETAL: Extremities without clubbing, cyanosis, or edema. No joint tenderness, effusion, or edema noted. No calf tenderness. Negative Homans sign bilaterally. NEUROLOGICAL: Awake and alert. Cranial nerves II through XII intact. Motor and sensory grossly within normal limits. Five out of 5 muscle strength in all muscle groups. Normal speech. Insight and judgment is good Mood and behavior is appropriate Laboratory Laboratory Tests Test 01/21/18 00:04 01/21/18 04:32 White Blood Count 12.5 Red Blood Count 5.14 Hemoglobin 15.2 Hematocrit 44.2 Mean Corpuscular Volume 86.1 Mean Corpuscular Hemoglobin 29.7 Mean Corpuscular Hemoglobin Concent 34.4 Red Cell Distribution Width 14.3 Platelet Count 306 Mean Platelet Volume 10.2 Neutrophils (%) (Auto) 75.4 Lymphocytes (%) (Auto) 18.0 Monocytes (%) (Auto) 5.4 Eosinophils (%) (Auto) 0.6 Basophils (%) (Auto) 0.6 Neutrophils # (Auto) 9.5 Lymphocytes # (Auto) 2.3 Monocytes # (Auto) 0.7 Eosinophils # (Auto) 0.1 Basophils # (Auto) 0.1 CBC Comment DIFF FINAL Differential Comment Blood Urea Nitrogen 14 Creatinine 0.81 Random Glucose 227 Total Protein 7.9 Albumin 3.9 Calcium Level 9.4 Alkaline Phosphatase 156 Aspartate Amino Transf (AST/SGOT) 16 Alanine Aminotransferase (ALT/SGPT) 29 Total Bilirubin 0.4 Sodium Level 139 Potassium Level 4.3 Chloride Level 101 Carbon Dioxide Level 26.9 Anion Gap 11 Estimat Glomerular Filtration Rate 73 Troponin I LESS THAN 0.02 Lipase 98 Urine Color LIGHT-YELLOW Urine Turbidity HAZY Urine pH 7.0 Urine Specific [place] 1.014 Urine Protein NEG Urine Glucose (UA) 300 Urine Ketones 40 Urine Occult Blood NEG Urine Nitrite NEG Urine Bilirubin NEG Urine Urobilinogen LESS THAN 2.0 Urine Leukocyte Esterase MOD Urine RBC 1 Urine WBC 3 Urine Squamous Epithelial Cells 2 Urine Bacteria MANY Urine Mucus FEW Microscopic Urinalysis Comment CULTURE INDICATED Date/Time Source Procedure Growth Status 01/21/18 04:32 Urine Clean Catch Urine Culture Pending Received Result Diagram: 01/21/18 0004 01/21/18 0004 Imaging Last Impressions Gall Bladder Ultrasound 01/21/18 0000 Signed Impressions: Service Date/Time: December 08:39 - CONCLUSION: 1. Gallbladder wall thickening and positive sonographic Watts's sign suggestive of acute cholecystitis. A hepatobiliary scan may be helpful to confirm cystic duct obstruction if clinical indicated. 2. Cholelithiasis. 3. Mild hepatomegaly. Jim Vilchis MD Abdomen/Pelvis CT 01/21/18 Signed Impressions: Service Date/Time: December 03:57 - CONCLUSION: 1. Negative CT abdomen/pelvis with contrast. Dioni Ochoa MD Abdomen X-Ray 01/21/18 Signed Impressions: Service Date/Time: December 00:43 - CONCLUSION: No dilated loops of small or large bowel. Dioni Ochoa MD Caprini VTE Risk Assessment Caprini VTE Risk Assessment: No/Low Risk (score <= 1) Caprini Risk Assessment Model Point Value = 1 Point Value = 2 Point Value = 3 Point Value = 5 Age 41-60 Minor surgery BMI > 25 kg/m2 Swollen legs Varicose veins or History of unexplained or recurrent spontaneous Oral contraceptives or hormone replacement Sepsis (< 1 month) Serious lung disease, including pneumonia (< 1 month) Abnormal pulmonary function Acute myocardial infarction Congestive heart failure (< 1 month) History of inflammatory bowel disease Medical patient at bed rest Age 61-74 Arthroscopic surgery Major open surgery (> 45 min) Laparoscopic surgery (> 45 min) Malignancy Confined to bed (> 72 hours) Immobilizing plaster cast Central venous access Age >= 75 History of VTE Family history of VTE Factor V Leiden Prothrombin [id number] Lupus anticoagulant Anticardiolipin antibodies Elevated serum homocysteine Heparin-induced thrombocytopenia Other congenital or acquired thrombophilia Stroke (< 1 month) Elective arthroplasty Hip, pelvis, or leg fracture Acute spinal cord injury (< 1 month) Prophylaxis Regimen Total Risk Factor Score Risk Level Prophylaxis Regimen 0-1 Low Early ambulation 2 Moderate Order ONE of the following: *Sequential Compression Device (SCD) *Heparin 5000 units SQ BID 3-4 Higher Order ONE of the following medications: *Heparin 5000 units SQ TID *Enoxaparin/Lovenox 40 mg SQ daily (WT < 150 kg, CrCl > 30 mL/min) *Enoxaparin/Lovenox 30 mg SQ daily (WT < 150 kg, CrCl > 10-29 mL/min) *Enoxaparin/Lovenox 30 mg SQ BID (WT < 150 kg, CrCl > 30 mL/min) AND/OR *Sequential Compression Device (SCD) 5 or more Highest Order ONE of the following medications: *Heparin 5000 units SQ TID (Preferred with Epidurals) *Enoxaparin/Lovenox 40 mg SQ daily (WT < 150 kg, CrCl > 30 mL/min) *Enoxaparin/Lovenox 30 mg SQ daily (WT < 150 kg, CrCl > 10-29 mL/min) *Enoxaparin/Lovenox 30 mg SQ BID (WT < 150 kg, CrCl > 30 mL/min) AND *Sequential Compression Device (SCD) Assessment and Plan Assessment and Plan Acute cholecystitis we will consult general surgery. Keep n.p.o. IV fluids Pain control Continue on Cipro and Flagyl Diabetes mellitus on chronic oral medications only Continue on sliding scale coverage with Accu-Cheks before meals and at bedtime keep n.p.o. Leukocytosis suspect secondary to the acute cholecystitis Urinary tract infection the Cipro will cover this more than likely A.m. labs GI prophylaxis DVT prophylaxis with SCDs and TYESHA hose Code Status Full code Discussed Condition With Discussed with the ER physician, as well as the patient, and her daughter and RN Physician Certification 2 Midnight Certification Type: Admission for Inpatient Services Order for Inpatient Services The services are ordered in accordance with Medicare regulations or non- Medicare payer requirements, as applicable. In the case of services not specified as inpatient-only, they are appropriately provided as inpatient services in accordance with the 2-midnight benchmark. Estimated LOS (days): 2 days is the estimated time the patient will need to remain in the hospital, assuming treatment plan goals are met and no additional complications. Post-Hospital Plan: Home Problem Qualifiers (1) Abdominal pain: Qualified Codes: R10.9 - Unspecified abdominal pain Enzo Campbell DO Jan 21, 2018 11:36
[2018-01-21] MEDS: SODIUM CHLOR 0.9% 1000 ML INJ 1,000 ML IV SCH ×2 (12:17→20:39)
[2018-01-21 12:29] LABS: PROTHROMBIN TIME - PATIENT 10.6 SEC (9.8-11.6)
[2018-01-21] MEDS: INSULIN ASPART SUPPLEMENTAL SCALE SQ SCH ×3 (13:40→20:51)
--- NOTE | 2018-01-21 14:14 | EKG ---
Date Performed: 01/21/2018 Time Performed: 00:10:03 PTAGE: 57 years EKG: Baseline artifact present Sinus rhythm NORMAL ECG NO PREVIOUS TRACING DOCTOR: Edouard Conley Interpretating Date/Time 01/21/2018 14:12:43
[2018-01-21] MEDS: MORPHINE SULFATE 2 MG/ML INJ IV PUSH PRN ×3 (14:25→20:41)
--- NOTE | 2018-01-21 15:16 | PD.CONS ---
cc: Richi Ackerman MD [facility] Service CONSULTATION NOTE FOR SURGICAL ATTENDING, DR. RICHI ACKERMAN General Surgery Consult Requested By Dr. Willard Reason for Consult Acute cholecystitis Primary Care Physician No Primary Care Physician History of Present Illness This is a 57 year old female with a past medical history of diabetes mellitus who came to the ED this morning with complaints of abdominal pain. The patient states that she awoke Thursday morning with severe epigastric abdominal pain with associated nausea and vomiting. She describes the pain as sharp and stabbing. She has never had pain like this before. She had been in her usual state of health prior to that. She tried Tums but had no relief of the pain. Her last bowel movement was today. A gallbladder US was completed which shows wall thickening of the gallbladder and a positive sonographic Watts's sign. The patient does have a mildly elevated WBC at 12.5. Her liver enzymes are essentially normal except for an elevated alkaline phosphatase. She continues to have RIGHT upper quadrant pain. She is accompanied by her brother. A General Surgery consultation has been requested. Review of Systems Constitutional: DENIES: Fatigue, Weight loss, Change in appetite Endocrine: DENIES: Polydipsia, Polyuria, Polyphagia Eyes: DENIES: Diplopia, Eye inflammation Ears, nose, mouth, throat: DENIES: Hearing loss, Vertigo Respiratory: DENIES: Apneas Cardiovascular: DENIES: Chest pain, Dyspnea on Exertion Gastrointestinal: COMPLAINS OF: Abdominal pain, Nausea, Vomiting Genitourinary: DENIES: Urinary frequency Musculoskeletal: DENIES: Joint pain Integumentary: DENIES: Abnormal pigmentation Hematologic/lymphatic: DENIES: Bruising Immunologic/allergic: DENIES: Eczema Neurologic: DENIES: Headache, Localized weakness Psychiatric: DENIES: Mood changes, Depression, Hallucinations Past Family Social History Past Medical History Diabetes mellitus Past Surgical History None Reported Medications Famotidine Metformin Glimepiride Allergies: Coded Allergies: Penicillins (Verified Allergy, Unknown, 01/20/18) pt states its been decades, unsure of reaction. Active Ordered Medications Current Medications Medications (Trade) Dose Ordered Sig/Shakira Route Start Time Stop Time Status Last Admin (Pepcid Inj) 20 mg ONCE IV PUSH 01/21/18 00:00 01/20/18 23:59 (D50w (Vial) Inj) 50 ml UNSCH PRN IV PUSH 01/21/18 10:15 (Glucagon Inj) 1 mg UNSCH PRN OTHER 01/21/18 10:15 (NovoLOG SUPPLEMENTAL SCALE) 1 ACHS SLIDING SCALE SQ 01/21/18 12:00 01/21/18 13:40 Sodium Chloride 1,000 ml @ 100 mls/hr Q10H IV 01/21/18 10:14 01/21/18 12:17 (NS Flush) 2 ml UNSCH PRN IV FLUSH 01/21/18 10:15 (NS Flush) 2 ml BID IV FLUSH 01/21/18 21:00 (Tylenol) 650 mg Q4H PRN PO 01/21/18 10:15 (Zofran Inj) 4 mg Q6H PRN IVP 01/21/18 10:15 01/21/18 14:23 (Reglan Inj) 5 mg Q6H PRN IV PUSH 01/21/18 10:15 (Restoril) 15 mg HS PRN PO 01/21/18 10:15 (Tylenol) 650 mg Q6H PRN PO 01/21/18 10:15 (Percocet 5-325 Mg) 1 tab Q6H PRN PO 01/21/18 10:15 (Percocet 10-325 Mg) 1 tab Q6H PRN PO 01/21/18 10:15 (Morphine Inj) 2 mg Q3H PRN IV PUSH 01/21/18 10:15 (Morphine Inj) 4 mg Q3H PRN IV PUSH 01/21/18 10:15 (Morphine Inj) 4 mg Q3H PRN IV PUSH 01/21/18 10:15 01/21/18 14:25 (Narcan Inj) 0.4 mg UNSCH PRN IV PUSH 01/21/18 10:15 (Joi-Colace) 1 tab BID PO 01/21/18 21:00 (Milk Of Magnesia Liq) 30 ml Q12H PRN PO 01/21/18 10:15 (Senokot) 17.2 mg Q12H PRN PO 01/21/18 10:15 (Dulcolax Supp) 10 mg DAILY PRN RECTAL 01/21/18 10:15 (Lactulose Liq) 30 ml DAILY PRN PO 01/21/18 10:15 Ciprofloxacin/ Dextrose 200 ml @ 200 mls/hr Q12H IV 01/21/18 21:00 Metronidazole 100 ml @ 100 mls/hr Q8H IV 01/21/18 17:00 Family History Noncontributory Social History Denies tobacco use Denies ETOH use Denies illicit drug use Works with her ; 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 She travels a lot for work. Physical Exam Vital Signs Vital Signs Date Time Temp Pulse Resp B/P (MAP) Pulse Ox O2 Delivery O2 Flow Rate FiO2 01/21/18 14:27 85 20 126/60 (82) 96 Room Air 01/21/18 10:02 85 20 113/57 (75) 92 Room Air 01/21/18 05:29 01/21/18 04:42 86 18 144/78 (100) 99 Room Air 01/21/18 02:43 80 20 143/76 (98) 98 Room Air 01/20/18 23:51 76 20 188/86 (120) 99 Room Air 01/20/18 21:46 98.2 75 16 171/77 (108) 100 Physical Exam GENERAL: Very pleasant 57 year old female resting in bed in no acute distress. SKIN: Warm and dry. HEAD: Atraumatic. Normocephalic. EYES: Pupils equal and round. No scleral icterus. No injection or drainage. ENT: No nasal bleeding or discharge. Mucous membranes pink and moist. NECK: Trachea midline. CARDIOVASCULAR: Regular rate and rhythm. RESPIRATORY: No accessory muscle use. Clear to auscultation. Breath sounds equal bilaterally. GASTROINTESTINAL: Abdomen soft, non-distended; obese; RUQ tenderness with palpation; no visible scars or hernias. MUSCULOSKELETAL: Extremities without clubbing, cyanosis, or edema. No obvious deformities. NEUROLOGICAL: Awake and alert. No obvious cranial nerve deficits. Motor grossly within normal limits. Five out of 5 muscle strength in the arms and legs. Normal speech. PSYCHIATRIC: Appropriate mood and affect; insight and judgment normal. Laboratory Laboratory Tests Test 01/21/18 00:04 01/21/18 04:32 01/21/18 11:45 White Blood Count 12.5 Red Blood Count 5.14 Hemoglobin 15.2 Hematocrit 44.2 Mean Corpuscular Volume 86.1 Mean Corpuscular Hemoglobin 29.7 Mean Corpuscular Hemoglobin Concent 34.4 Red Cell Distribution Width 14.3 Platelet Count 306 Mean Platelet Volume 10.2 Neutrophils (%) (Auto) 75.4 Lymphocytes (%) (Auto) 18.0 Monocytes (%) (Auto) 5.4 Eosinophils (%) (Auto) 0.6 Basophils (%) (Auto) 0.6 Neutrophils # (Auto) 9.5 Lymphocytes # (Auto) 2.3 Monocytes # (Auto) 0.7 Eosinophils # (Auto) 0.1 Basophils # (Auto) 0.1 CBC Comment DIFF FINAL Differential Comment Blood Urea Nitrogen 14 Creatinine 0.81 Random Glucose 227 Total Protein 7.9 Albumin 3.9 Calcium Level 9.4 Alkaline Phosphatase 156 Aspartate Amino Transf (AST/SGOT) 16 Alanine Aminotransferase (ALT/SGPT) 29 Total Bilirubin 0.4 Sodium Level 139 Potassium Level 4.3 Chloride Level 101 Carbon Dioxide Level 26.9 Anion Gap 11 Estimat Glomerular Filtration Rate 73 Troponin I LESS THAN 0.02 Lipase 98 Urine Color LIGHT-YELLOW Urine Turbidity HAZY Urine pH 7.0 Urine Specific [place] 1.014 Urine Protein NEG Urine Glucose (UA) 300 Urine Ketones 40 Urine Occult Blood NEG Urine Nitrite NEG Urine Bilirubin NEG Urine Urobilinogen LESS THAN 2.0 Urine Leukocyte Esterase MOD Urine RBC 1 Urine WBC 3 Urine Squamous Epithelial Cells 2 Urine Bacteria MANY Urine Mucus FEW Microscopic Urinalysis Comment CULTURE INDICATED Prothrombin Time 10.6 Prothromb Time International Ratio 1.0 Date/Time Source Procedure Growth Status 01/21/18 04:32 Urine Clean Catch Urine Culture Pending Received Result Diagram: 01/21/18 0004 01/21/18 0004 Imaging Last 48 hours Impressions Gall Bladder Ultrasound 01/21/18 0000 Signed Impressions: Service Date/Time: December 08:39 - CONCLUSION: 1. Gallbladder wall thickening and positive sonographic Watts's sign suggestive of acute cholecystitis. A hepatobiliary scan may be helpful to confirm cystic duct obstruction if clinical indicated. 2. Cholelithiasis. 3. Mild hepatomegaly. Jim Vilchis MD Abdomen/Pelvis CT 01/21/18 0000 Signed Impressions: Service Date/Time: December 03:57 - CONCLUSION: 1. Negative CT abdomen/pelvis with contrast. Dioni Ochoa MD Abdomen X-Ray 01/21/18 0000 Signed Impressions: Service Date/Time: December 00:43 - CONCLUSION: No dilated loops of small or large bowel. Dioni Ochoa MD Assessment and Plan Problem List: (1) Right upper quadrant pain ICD Codes: R10.11 - Right upper quadrant pain Status: Acute (2) Positive Watts's Sign ICD Codes: R19.8 - Other specified symptoms and signs involving the digestive system and abdomen Status: Acute (3) Abnormal findings on imaging of biliary tract ICD Codes: R93.2 - Abnormal findings on diagnostic imaging of liver and biliary tract Status: Acute (4) Cholecystitis ICD Codes: K81.9 - Cholecystitis, unspecified Status: Acute (5) Abdominal pain ICD Codes: R10.9 - Unspecified abdominal pain Status: Acute (6) Diabetes mellitus ICD Codes: E11.9 - Type 2 diabetes mellitus without complications Assessment and Plan 57 year old female with RUQ pain; acute cholecystitis -Will attempt to add patient on OR schedule for today may have to happen tomorrow because the OR schedule is so busy -NPO -Obtain consents for laparoscopic cholecystectomy; possible open procedure; possible intraoperative cholangiogram -Antibiotics -Reviewed procedure and answered all questions -Thank you for this consult; We will continue to follow Discussed Condition With Dr. Meka Santos Attending Statement NOTE FOR SURGICAL ATTENDING, DR. RICHI ACKERMAN Patient seen in the emergency room Has severe right upper quadrant pain Reviewed imaging Reviewed surgical intervention with the patient she appeared to understand I agree with above assessment and plan. The exam, history, and the medical decision-making described in the above note were completed with the assistance of the mid-level provider. I reviewed and agree with the findings presented. I attest that I had a [id number] encounter with the patient on the same day, and personally performed and documented my assessment and findings in the medical record. The following services were provided during this hospital visit: Chart data review, vital sign assessments/reviewing monitor data Review of consultations notes if present. Medication orders/review and/or management Ordering and/or reviewing lab tests Ordering and/or interpreting/reviewing x-rays and/or diagnostic studies Care of the patient and discussion of the patient with the care team Documentation time To help prompt me to consider important information that might be impacting today's encounter and assessment, information from prior notes written by myself or my colleagues may have been "brought forward/copy and pasted" into today's note. Problem Qualifiers (1) Abdominal pain: Qualified Codes: R10.9 - Unspecified abdominal pain Hawa Pruett/First Deacon KOWALSKI Jan 21, 2018 15:16 Richi Ackerman MD Jan 21, 2018 17:00
[2018-01-21] MEDS: metroNIDAZOLE 500 MG INJ 100 ML IV SCH (16:51)
[2018-01-21] MEDS: ONDANSETRON HCL 4 MG/2 ML VIAL IV PUSH PRN (17:33)
[2018-01-21] MEDS: CIPROFLOXACIN 400 MG PREMIX 200 ML IV SCH (20:37)
[2018-01-21] MEDS: DOCUSATE SODIUM 50 MG/SENNA 8.6 MG TAB PO SCH (20:37)
[2018-01-21] MEDS: SODIUM CHLORIDE 0.9% FLUSH 10 ML FLUSH IV FLUSH SCH (20:37)
[2018-01-22] VITALS (9 sets, daily range): BP systolic 94–126; BP diastolic 51–57; PULSE 65–119; RESP 16–18; TEMP 97.8–100.5; O2SAT 91–95
[2018-01-22] MEDS: metroNIDAZOLE 500 MG INJ 100 ML IV SCH ×3 (00:14→17:00)
[2018-01-22] MEDS: ONDANSETRON HCL 4 MG/2 ML VIAL IV PUSH PRN (00:15)
[2018-01-22] MEDS: MORPHINE SULFATE 2 MG/ML INJ IV PUSH PRN ×3 (00:16→11:20)
[2018-01-22] MEDS: SODIUM CHLOR 0.9% 1000 ML INJ 1,000 ML IV SCH ×3 (06:14→14:46)
[2018-01-22] MEDS: INSULIN ASPART SUPPLEMENTAL SCALE SQ SCH ×4 (08:00→21:50)
--- NOTE | 2018-01-22 08:46 | HHI.PR ---
Subjective Remarks Follow-up abdominal pain. Patient states that she is still having pain in the right upper quadrant and midepigastric region. Pain has now radiated to the right shoulder. Denies shortness of breath or chest pain. Denies nausea or vomiting. No diarrhea or constipation. Objective Vitals Vital Signs Date Time Temp Pulse Resp B/P (MAP) Pulse Ox O2 Delivery O2 Flow Rate FiO2 01/22/18 04:10 22 01/22/18 04:01 95 01/22/18 03:22 98.8 105 18 126/57 (80) 91 01/21/18 23:30 98.0 94 17 139/58 (85) 93 01/21/18 20:50 20 01/21/18 20:38 98 01/21/18 20:21 99.5 88 18 137/65 (89) 96 01/21/18 17:08 80 01/21/18 16:46 80 20 142/67 (92) 98 01/21/18 14:27 85 20 126/60 (82) 96 Room Air 01/21/18 10:02 85 20 113/57 (75) 92 Room Air I/O 01/21/18 01/21/18 01/21/18 01/22/18 01/22/18 01/22/18 07:00 15:00 23:00 07:00 15:00 23:00 Intake Total 1000 ml 300 ml 100 ml Balance 1000 ml 300 ml 100 ml Intake IV Total 1000 ml 300 ml 100 ml # Voids 1 2 Result Diagram: 01/21/18 0004 01/21/18 0004 Imaging Last Impressions Gall Bladder Ultrasound 01/21/18 0000 Signed Impressions: Service Date/Time: December 08:39 - CONCLUSION: 1. Gallbladder wall thickening and positive sonographic Watts's sign suggestive of acute cholecystitis. A hepatobiliary scan may be helpful to confirm cystic duct obstruction if clinical indicated. 2. Cholelithiasis. 3. Mild hepatomegaly. Jim Vilchis MD Abdomen/Pelvis CT 01/21/18 0000 Signed Impressions: Service Date/Time: December 03:57 - CONCLUSION: 1. Negative CT abdomen/pelvis with contrast. Dioni Ochoa MD Abdomen X-Ray 01/21/18 0000 Signed Impressions: Service Date/Time: December 00:43 - CONCLUSION: No dilated loops of small or large bowel. Dioni Ochoa MD Objective Remarks General: No acute distress. Heart: Regular rate and rhythm. No murmur. Lungs: Clear to auscultation bilaterally. No wheezes, rales, or rhonchi. Breathing is nonlabored. Abdomen: Soft, tender to palpation in right upper quadrant and midepigastric regions, nondistended. Extremities: No lower extremity edema. Psych: Alert and oriented. Procedures None Urinary Catheter: No Vascular Central Line Catheter: No A/P Problem List: (1) Diabetes mellitus ICD Code: E11.9 - Type 2 diabetes mellitus without complications (2) Abdominal pain ICD Code: R10.9 - Unspecified abdominal pain Status: Acute (3) Cholecystitis ICD Code: K81.9 - Cholecystitis, unspecified Status: Acute Assessment and Plan 1. Acute cholecystitis: Appreciate general surgery recommendations. N.p.o. Planning for cholecystectomy when an operating room is available. Continue pain control, IV fluids. Continue antibiotics. 2. Diabetes mellitus: Patient takes metformin and glimepiride as an outpatient. These are on hold as patient is n.p.o. Monitor Accu-Cheks and cover with sliding scale insulin. 3. Leukocytosis: Likely secondary to acute cholecystitis. Monitor labs. 4. UTI: Continue antibiotics. 5. DVT prophylaxis: TYESHA Clark. Avoid chemical prophylaxis in anticipation of probable surgical intervention. Problem Qualifiers (1) Abdominal pain: Qualified Codes: R10.9 - Unspecified abdominal pain Dao Moraes MD Jan 22, 2018 08:46
[2018-01-22] MEDS: DOCUSATE SODIUM 50 MG/SENNA 8.6 MG TAB PO SCH ×2 (09:15→20:43)
[2018-01-22] MEDS: SODIUM CHLORIDE 0.9% FLUSH 10 ML FLUSH IV FLUSH SCH ×2 (09:17→20:43)
[2018-01-22 09:42] LABS: BASOPHIL # 0.1 TH/MM3 (0-0.2); BASOPHIL % 0.3 % (0.0-2.0); HEMATOCRIT 42.8 % (35.0-46.0); HEMOGLOBIN 14.7 GM/DL (11.6-15.3); LYMPH % 4.9 % (9.0-44.0); LYMPHOCYTE # 0.9 TH/MM3 (1.0-4.8); MEAN CELL VOLUME 87.1 FL (80.0-100.0); MEAN CORPUSCULAR HEMOGLOBIN 29.9 PG (27.0-34.0); MEAN CORPUSCULAR HGB CONC 34.3 % (32.0-36.0); MEAN PLATELET VOLUME 9.9 FL (7.0-11.0); MONO % 5.9 % (0.0-8.0); MONOCYTE # 1.1 TH/MM3 (0-0.9); NEUT % 88.9 % (16.0-70.0); PLATELET COUNT 280 TH/MM3 (150-450); RED BLOOD COUNT 4.91 MIL/MM3 (4.00-5.30); RED CELL DISTRIBUTION WIDTH 14.2 % (11.6-17.2); WHITE BLOOD COUNT 18.1 TH/MM3 (4.0-11.0)
[2018-01-22 10:21] LABS: ALBUMIN 3.3 GM/DL (3.4-5.0); ALKALINE PHOSPHATASE 140 U/L (45-117); ALT (GPT) 54 U/L (10-53); AST (GOT) 53 U/L (15-37); BICARBONATE 24.9 MEQ/L (21.0-32.0); BLOOD UREA NITROGEN 19 MG/DL (7-18); CALCIUM 8.9 MG/DL (8.5-10.1); CHLORIDE 99 MEQ/L (98-107); CREATININE 1.53 MG/DL (0.50-1.00); FREE T4 1.18 NG/DL (0.76-1.46); GLOMERULAR FILTRATION RATE 35 ML/MIN (>89); GLUCOSE,RANDOM 309 MG/DL (74-106); MAGNESIUM 1.8 MG/DL (1.5-2.5); PHOSPHORUS 2.4 MG/DL (2.5-4.9); SODIUM (NA) 134 MEQ/L (136-145); TOTAL BILIRUBIN ADULT 1.5 MG/DL (0.2-1.0); TOTAL PROTEIN 7.2 GM/DL (6.4-8.2)
[2018-01-22] MEDS: CIPROFLOXACIN 400 MG PREMIX 200 ML IV SCH ×2 (11:20→20:41)
[2018-01-22] MEDS ORDERED: PROPOFOL 200 MG/20 ML AMP IV ONE (12:00)
[2018-01-22] MEDS ORDERED: NEOSTIGMINE 5 MG/5 ML SYRINGE IV PUSH ONE (12:00)
[2018-01-22] MEDS ORDERED: ONDANSETRON HCL 4 MG/2 ML VIAL IV ONE (12:00)
[2018-01-22] MEDS ORDERED: GLYCOPYRROLATE 1 MG/5 ML SYRINGE IV PUSH ONE (12:00)
[2018-01-22] MEDS ORDERED: SODIUM CHLOR 0.9% 250 ML INJ 250 ML IV ONE (12:00)
[2018-01-22] MEDS ORDERED: SUCCINYLCHOLINE CHLORIDE 100 MG/5 ML SYRINGE IV PUSH ONE (12:00)
[2018-01-22] MEDS ORDERED: LACTATED RINGER'S 1000 ML INJ 1,000 ML IV ONE (12:00)
[2018-01-22] MEDS ORDERED: PHENYLEPH/NS 1000 MCG/10 ML SYR IV ONE (12:00)
[2018-01-22] MEDS ORDERED: ROCURONIUM INJ 50 MG/5 ML SYRINGE IV PUSH ONE (12:00)
[2018-01-22] MEDS ORDERED: LIDOCAINE HCL 1% PF 5 ML SYRINGE OTHER ONE (12:00)
[2018-01-22] MEDS ORDERED: DEXAMETHASONE SOD PHOS 4 MG/ML VIAL IV ONE (12:00)
[2018-01-22] MEDS ORDERED: PHENYLEPHRINE HCL 10 MG/ML VIAL IV ONE (12:00)
[2018-01-22] MEDS ORDERED: BUPIVACAINE/EPINEPHRINE 0.5% PF 30 ML VIAL ONE (12:47)
[2018-01-22] MEDS ORDERED: METOPROLOL TARTRATE 25 MG TAB PO PRN (13:00)
[2018-01-22] MEDS ORDERED: LACTATED RINGER'S 1000 ML IV PRN (13:00)
[2018-01-22] MEDS ORDERED: SODIUM CHLORID 0.9% 500 ML IV PRN (13:00)
[2018-01-22] MEDS ORDERED: POVIDONE IODINE 5% (ANTISEPSIS KIT) 4 APPLICATIONS EACH NARE PRN (13:00)
[2018-01-22] MEDS ORDERED: CHLORHEXIDINE GLUCONATE 2 % 1 PACK (2 CLOTHS) TOPICAL PRN (13:00)
[2018-01-22] MEDS ORDERED: ACETAMINOPHEN 1000 MG/100 ML 100 ML IV ONE (13:55)
--- NOTE | 2018-01-22 14:45 | HHI.PR ---
cc: Richi Ackerman MD Immediate Post Op Note Procedure Date: Jan 22, 2018 Pre Op Diagnosis: (1) Cholecystitis (2) Abdominal pain (3) Diabetes mellitus (4) Right upper quadrant pain (5) Abnormal findings on imaging of biliary tract (6) Positive Watts's Sign Post Op Diagnosis: (1) Cholecystitis (2) Abdominal pain (3) Diabetes mellitus (4) Right upper quadrant pain (5) Abnormal findings on imaging of biliary tract (6) Positive Watts's Sign (7) S/P laparoscopic cholecystectomy Surgeon: Richi Ackerman Die Engraver(s): see or records Procedure: Laparoscopic cholecystectomy Findings: Gangrenous gallbladder Complications: None Specimen(s) removed: Gallbladder and numerous stones Estimated blood loss: 100 cc Anesthesia: General Drains: None IVF Patient to: PACU Patient Condition: Good Implant/Devices: SEE IMPLANT LOG (if applicable) Date/Time of Procedure: SEE SURGICAL CARE RECORD Richi Ackerman MD Jan 22, 2018 14:45
[2018-01-22] MEDS ORDERED: DO NOT ADM ANY ANTICOAGULANT DRUGS PRN (14:52)
[2018-01-22] MEDS ORDERED: Post-op Orders (for Pharmacy) XX ONE (15:00)
[2018-01-22] MEDS ORDERED: SODIUM CHLORIDE 0.9% FLUSH 10 ML FLUSH IV FLUSH PRN (15:00)
[2018-01-22] MEDS ORDERED: *diphenhydrAMINE HCL 50 MG/ML VIAL PERIprocedural Use ONLY ONE (15:05)
[2018-01-22] MEDS ORDERED: MORPHINE SULFATE 4 MG/ML INJ ONE (15:05)
--- NOTE | 2018-01-22 15:09 | MP ---
cc: Richi Ackerman MD DATE OF OPERATION: 01/22/2018 DATE OF PROCEDURE: 01/22/2018 PREOPERATIVE DIAGNOSIS: Cholelithiasis, cholecystitis. POSTOPERATIVE DIAGNOSIS: Gangrenous cholelithiasis, cholecystitis. PROCEDURE PERFORMED: Laparoscopic cholecystectomy. ANESTHESIA: General. SURGEON: Dr. Ackerman INDICATIONS FOR PROCEDURE: A pleasant 57-year-old female who came to the emergency room, had some abdominal discomfort, was found to have biliary colic with positive Watts's. Workup ensued showing cholecystitis. Plans were made for above. PROCEDURE: The patient is taken to the operating room, placed in the supine position. After anesthesia, her abdomen is prepped with Betadine. She had been given antibiotics. We make an incision just below the umbilicus. Veress needle inserted, saline load test performed. The abdomen is insufflated to 15 mmHg. Trocar is introduced, camera was introduced. Three other working ports are placed, 5 mm below the xiphoid, 5 mm in between the 2 previously placed ports and a third working port in the right upper quadrant. The gallbladder can be obviously seen. It is quite gangrenous and chock full of stones. We try to decompress it with aspiration, but it is full of stones. We only get about 10 mL of bile out. We are able to grasp the gallbladder then and carefully dissect down the angle of [place], identify the cystic duct, which is doubly ligated and transected. The right hepatic artery is close to the gallbladder; it is teased away from the gallbladder. The cystic artery is then seen; this is doubly ligated and transected. The gallbladder is then teased off the gallbladder bed and which is very adherent, very gangrenous. We did spill a small amount of stones, which are retrieved. The gallbladder and stones are placed in an EndoCatch and pulled out through the umbilical incision, which must be elongated to about 4 cm because of the size of the gallbladder. The gallbladder was then passed off the field and irrigated, hemostasis assured. The liver is smooth, peritoneal surfaces are smooth. The right hepatic artery is identified of the cystic duct stump, was hemostatic. The cystic duct stump is seen which was not leaking bile. We then irrigate. The liver is smooth and there was good hemostasis. The irrigation solution is then removed. The four trocars are removed. We then close the fascial layer at the umbilicus with a 0 Vicryl in an interrupted fashion. The skin is closed with a 4-0 Vicryl. Steri-Strips applied, sterile bandage applied. The patient tolerated the procedure well, had no immediate postop complications. Richi Ackerman MD JMARCO/EDGAR , 02:39 PM , 03:08 PM
[2018-01-22 19:18] LABS: HEMOGLOBIN A1C 8.4 % (4.3-6.0)
[2018-01-22] MEDS: oxyCODONE/ACETAMINOPHEN 10 MG/325 MG TAB PO PRN (21:51)
[2018-01-23] VITALS (18 sets, daily range): BP systolic 104–119; BP diastolic 53–60; PULSE 78–98; RESP 17–18; TEMP 97.2–98.5; O2SAT 91–98
[2018-01-23] MEDS: SODIUM CHLOR 0.9% 1000 ML INJ 1,000 ML IV SCH ×6 (01:34→22:14)
[2018-01-23] MEDS: metroNIDAZOLE 500 MG INJ 100 ML IV SCH ×3 (01:34→17:51)
[2018-01-23] MEDS: oxyCODONE/ACETAMINOPHEN 10 MG/325 MG TAB PO PRN ×4 (02:03→20:19)
[2018-01-23 07:52] LABS: AUTOMATED NEUTROPHIL # 12.6 TH/MM3 (1.8-7.7); BASOPHIL % 0.1 % (0.0-2.0); EOSINOPHIL % 0.1 % (0.0-4.0); HEMATOCRIT 35.1 % (35.0-46.0); HEMOGLOBIN 11.9 GM/DL (11.6-15.3); LYMPH % 9.4 % (9.0-44.0); LYMPHOCYTE # 1.4 TH/MM3 (1.0-4.8); MEAN CELL VOLUME 87.7 FL (80.0-100.0); MEAN CORPUSCULAR HEMOGLOBIN 29.6 PG (27.0-34.0); MEAN CORPUSCULAR HGB CONC 33.8 % (32.0-36.0); MONO % 7.7 % (0.0-8.0); MONOCYTE # 1.2 TH/MM3 (0-0.9); NEUT % 82.7 % (16.0-70.0); PLATELET COUNT 207 TH/MM3 (150-450); RED CELL DISTRIBUTION WIDTH 13.9 % (11.6-17.2); WHITE BLOOD COUNT 15.2 TH/MM3 (4.0-11.0)
[2018-01-23 08:32] LABS: BICARBONATE 25.9 MEQ/L (21.0-32.0); CALCIUM 8.2 MG/DL (8.5-10.1); CREATININE 1.14 MG/DL (0.50-1.00)
--- NOTE | 2018-01-23 08:37 | HHI.PR ---
Subjective Remarks Follow-up diabetes mellitus, abdominal pain. Patient is status post lap scopic cholecystectomy, POD #1. She states that she feels better than she did before the surgery, but is still having abdominal pain. Also reports sore throat and mild cough. No shortness of breath or chest pain. No nausea or vomiting. She reports flatus, but no bowel movements. Objective Vitals Vital Signs Date Time Temp Pulse Resp B/P (MAP) Pulse Ox O2 Delivery O2 Flow Rate FiO2 01/23/18 07:55 83 01/23/18 04:25 97.3 80 17 104/55 (71) 93 01/23/18 04:00 80 01/23/18 00:00 98.5 80 18 112/53 (72) 92 01/23/18 00:00 83 01/22/18 20:15 86 01/22/18 20:00 98.3 85 18 100/57 (71) 94 01/22/18 17:00 88 16 115/68 (84) 95 Nasal Cannula 3 01/22/18 15:30 82 16 113/65 (81) 95 Nasal Cannula 3 01/22/18 15:30 97.8 80 16 98/51 (67) 93 01/22/18 15:15 85 16 113/61 (78) 95 Nasal Cannula 3 01/22/18 15:00 87 16 106/54 (71) 94 Nasal Cannula 3 01/22/18 14:53 98.4 94 16 91/48 (62) 95 Nasal Cannula 3 01/22/18 10:26 100.5 110 18 111/55 (73) 92 01/22/18 08:44 98.6 65 18 94/51 (65) 95 I/O 01/22/18 01/22/18 01/22/18 01/23/18 01/23/18 01/23/18 07:00 15:00 23:00 07:00 15:00 23:00 Intake Total 1400 ml 680 ml 1594 ml Output Total 150 ml Balance 1250 ml 680 ml 1594 ml Intake Oral 480 ml 360 ml IV Total 1400 ml 200 ml 1234 ml Output Estimated Blood Loss 150 ml # Voids 1 2 # Bowel Movements 0 0 Result Diagram: 01/23/18 0635 01/23/18 0635 Imaging Last Impressions Gall Bladder Ultrasound 01/21/18 0000 Signed Impressions: Service Date/Time: December 08:39 - CONCLUSION: 1. Gallbladder wall thickening and positive sonographic Watts's sign suggestive of acute cholecystitis. A hepatobiliary scan may be helpful to confirm cystic duct obstruction if clinical indicated. 2. Cholelithiasis. 3. Mild hepatomegaly. Jim Vilchis MD Abdomen/Pelvis CT 01/21/18 0000 Signed Impressions: Service Date/Time: December 03:57 - CONCLUSION: 1. Negative CT abdomen/pelvis with contrast. Dioni Ochoa MD Abdomen X-Ray 01/21/18 0000 Signed Impressions: Service Date/Time: December 00:43 - CONCLUSION: No dilated loops of small or large bowel. Dioni Ochoa MD Objective Remarks General: No acute distress. Heart: Regular rate and rhythm. No murmur. Lungs: Clear to auscultation bilaterally. No wheezes, rales, or rhonchi. Breathing is nonlabored. Abdomen: Soft, appropriately tender to palpation, mildly distended. Extremities: No lower extremity edema. Psych: Alert and oriented. Procedures 01/22/18 laparoscopic cholecystectomy Urinary Catheter: No Vascular Central Line Catheter: No A/P Problem List: (1) Diabetes mellitus ICD Code: E11.9 - Type 2 diabetes mellitus without complications (2) Abdominal pain ICD Code: R10.9 - Unspecified abdominal pain Status: Acute (3) Cholecystitis ICD Code: K81.9 - Cholecystitis, unspecified Status: Acute Assessment and Plan 1. Acute cholecystitis: Appreciate general surgery recommendations. Status post left scopic cholecystectomy. Continue pain control, IV fluids. Continue antibiotics (ciprofloxacin, Flagyl). 2. Diabetes mellitus: Patient takes metformin and glimepiride as an outpatient. These are on hold. Monitor Accu-Cheks and cover with sliding scale insulin. Diabetic diet. 3. Leukocytosis: Likely secondary to acute cholecystitis. Monitor labs. 4. UTI: Continue antibiotics. 5. DVT prophylaxis: TYESHA Clark. Discharge Planning Plan for discharge home when cleared by general surgery. Problem Qualifiers (1) Abdominal pain: Qualified Codes: R10.9 - Unspecified abdominal pain Dao Moraes MD Jan 23, 2018 08:37
[2018-01-23] MEDS: SODIUM CHLORIDE 0.9% FLUSH 10 ML FLUSH IV FLUSH SCH ×2 (09:00→20:19)
[2018-01-23] MEDS: DOCUSATE SODIUM 50 MG/SENNA 8.6 MG TAB PO SCH ×2 (09:16→20:19)
[2018-01-23] MEDS: CIPROFLOXACIN 400 MG PREMIX 200 ML IV SCH ×2 (09:17→20:18)
[2018-01-23 09:20] LABS: BANDS 17 % (0-6); LYMPHOCYTES 18 % (9-44); MONOCYTES 8 % (0-8); NEUTROPHIL # MANUAL DIFF 11.2 TH/MM3 (1.8-7.7); POLYS (SEG NEUTROPHILS) 57 % (16-70)
[2018-01-23] MEDS: INSULIN ASPART SUPPLEMENTAL SCALE SQ SCH ×4 (09:24→20:19)
[2018-01-23] MEDS ORDERED: ASP: Documented ESBL, MDR A baumannii or P. aeruginosa PRN (11:30)
[2018-01-23] MEDS ORDERED: ASP: Documented allergy to Penicillins or Cephalosporins PRN (11:30)
[2018-01-23] MEDS ORDERED: MISCELLANEOUS PHARMACY INFORMATION XX PRN (11:30)
[2018-01-23] MEDS ORDERED: ASP: ID consult, note reason in consult order PRN (11:30)
[2018-01-23] MEDS ORDERED: ERTAPENEM INJ 1,000 MG in SODIUM CHLORIDE 0.9% INJ 100 ML IV SCH ×2 (13:00→18:00)
--- NOTE | 2018-01-23 14:43 | HHI.PR ---
Subjective Subjective Notes Abdomen is pretty sore awaiting pain medication. Per bedside RN just diagnosed with ESBL. Awaiting ID consult and antibiotic recommendations. Objective Vitals/I&O Vital Signs Date Time Temp Pulse Resp B/P (MAP) Pulse Ox O2 Delivery O2 Flow Rate FiO2 01/23/18 14:40 84 01/23/18 12:00 97.2 18 119/59 (79) 95 01/22/18 17:00 Nasal Cannula 3 Labs Laboratory Tests Test 01/23/18 06:35 White Blood Count 15.2 Red Blood Count 4.00 Hemoglobin 11.9 Hematocrit 35.1 Mean Corpuscular Volume 87.7 Mean Corpuscular Hemoglobin 29.6 Mean Corpuscular Hemoglobin Concent 33.8 Red Cell Distribution Width 13.9 Platelet Count 207 Mean Platelet Volume 10.0 Neutrophils (%) (Auto) 82.7 Lymphocytes (%) (Auto) 9.4 Monocytes (%) (Auto) 7.7 Eosinophils (%) (Auto) 0.1 Basophils (%) (Auto) 0.1 Neutrophils # (Auto) 12.6 Lymphocytes # (Auto) 1.4 Monocytes # (Auto) 1.2 Eosinophils # (Auto) 0.0 Basophils # (Auto) 0.0 CBC Comment AUTO DIFF Differential Total Cells Counted 100 Neutrophils % (Manual) 57 Band Neutrophils % 17 Lymphocytes % 18 Monocytes % 8 Neutrophils # (Manual) 11.2 Differential Comment FINAL DIFF MANUAL Platelet Estimate NORMAL Platelet Morphology Comment ENLARGED Blood Urea Nitrogen 27 Creatinine 1.14 Random Glucose 181 Calcium Level 8.2 Sodium Level 136 Potassium Level 4.0 Chloride Level 103 Carbon Dioxide Level 25.9 Anion Gap 7 Estimat Glomerular Filtration Rate 49 Date/Time Source Procedure Growth Status 01/21/18 04:32 Urine Clean Catch Urine Culture - Final Escherichia Coli Esbl Positive Complete Radiology Last 48 hours Impressions Gall Bladder Ultrasound 01/21/18 0000 Signed Impressions: Service Date/Time: December 08:39 - CONCLUSION: 1. Gallbladder wall thickening and positive sonographic Watts's sign suggestive of acute cholecystitis. A hepatobiliary scan may be helpful to confirm cystic duct obstruction if clinical indicated. 2. Cholelithiasis. 3. Mild hepatomegaly. Jim Vilchis MD Abdomen/Pelvis CT 01/21/18 0000 Signed Impressions: Service Date/Time: December 03:57 - CONCLUSION: 1. Negative CT abdomen/pelvis with contrast. Dioni Ochoa MD Abdomen X-Ray 01/21/18 0000 Signed Impressions: Service Date/Time: December 00:43 - CONCLUSION: No dilated loops of small or large bowel. Dioni Ochoa MD Cardiovascular: Regular Lungs: Clear Abdomen: Other (Protuberant soft.) Extremities: No edema ( All 4 incision sites appear to be healing well beneath Band-Aids and Steri-Strips. No erythema or ecchymotic change.) A/P Problem List: (1) Right upper quadrant pain ICD Codes: R10.11 - Right upper quadrant pain Status: Acute (2) Positive Watts's Sign ICD Codes: R19.8 - Other specified symptoms and signs involving the digestive system and abdomen Status: Acute (3) Abnormal findings on imaging of biliary tract ICD Codes: R93.2 - Abnormal findings on diagnostic imaging of liver and biliary tract Status: Acute (4) Cholecystitis ICD Codes: K81.9 - Cholecystitis, unspecified Status: Acute (5) Abdominal pain ICD Codes: R10.9 - Unspecified abdominal pain Status: Acute (6) Diabetes mellitus ICD Codes: E11.9 - Type 2 diabetes mellitus without complications Assessment and Plan Postop day 1 status post laparoscopic cholecystectomy for gangrenous cholecystitis. Recently diagnosed ESBL awaiting ID recommendations for antibiotic therapy. Discharge home on antibiotics when okay with primary team and ID. Follow-up with Dr. Ackerman in 1-2 weeks. I discussed with the patient and her family avoiding abdominal strain. She can get in the shower. Problem Qualifiers (1) Abdominal pain: Qualified Codes: R10.9 - Unspecified abdominal pain Matt Carlos MD Jan 23, 2018 14:42
--- NOTE | 2018-01-23 19:52 | PD.ID.CON ---
History of Present Illness Service ID Consult Requested By Dr Varghese Reason for Consult UTI ESBL+ E.coli Primary Care Physician No Primary Care Physician Diagnoses: History of Present Illness Pt see on January 23 around 183 57 yo diabetic female presented to the hospital c/o baljita, meryliting and abd pain for one day She was diagnosed with acute calculous cholecystitis and underwent lab cholestectomy She also has urinalysis done and it showed bordeline pyuria, + leuk esterase and bacteriuria Her clx was + for ESBL+ E.coli Pt denies any disuria On presentation she has moderate leukocytosis, bt was afebrile she is on ertapenem, cipro, flagyl Isolate S to bactrim and cipro Review of Systems Except as stated in HPI: all other systems reviewed are Neg Past Family Social History Allergies: Coded Allergies: Penicillins (Verified Allergy, Unknown, 01/20/18) pt states its been decades, unsure of reaction. Past Medical History DM Past Surgical History none FACILITY MAINTENANCE MANAGER Active Ordered Medications Medications where reviewed in EMR Antibiotics Include: Ertapenem Family History reviewed/non contributory to current ID issue Social History No Tobacco. No ETOH. No Illicit Drugs. Physical Exam Vital Signs Vital Signs Date Time Temp Pulse Resp B/P (MAP) Pulse Ox O2 Delivery O2 Flow Rate FiO2 01/23/18 19:36 97 01/23/18 18:03 93 01/23/18 17:12 87 01/23/18 16:05 92 01/23/18 16:00 98.0 83 18 113/60 (77) 91 01/23/18 15:20 83 01/23/18 14:40 84 01/23/18 13:00 85 01/23/18 12:00 97.2 86 18 119/59 (79) 95 01/23/18 11:11 82 01/23/18 10:30 98 21 01/23/18 08:00 97.9 78 18 112/55 (74) 94 01/23/18 07:55 83 01/23/18 04:25 97.3 80 17 104/55 (71) 93 01/23/18 04:00 80 01/23/18 00:00 98.5 80 18 112/53 (72) 92 01/23/18 00:00 83 01/22/18 20:15 86 01/22/18 20:00 98.3 85 18 100/57 (71) 94 Physical Exam CONSTITUTIONAL/GENERAL: This is an obese middle aged patient, in no apparent distress. TUBES/LINES/DRAINS: SKIN: No jaundice, rashes, or lesions. Skin temperature appropriate. Not diaphoretic. HEAD: Atraumatic. Normocephalic. EYES: Pupils equal and round and reactive. Extraocular motions intact. No scleral icterus. No injection or drainage. Fundi not examined. ENT: Hearing grossly normal. Nose without bleeding or purulent drainage. Throat without visible erythema, exudates, masses, or lesions. NECK: Trachea midline. Supple, nontender. No palpable thyroid enlargement or nodularity. CARDIOVASCULAR: Regular rate and rhythm without murmurs, gallops, or rubs. No JVD. Peripheral pulses symmetric. RESPIRATORY/CHEST: Symmetric, unlabored respirations. Clear to auscultation. Breath sounds equal bilaterally. No wheezes, rales, or rhonchi. GASTROINTESTINAL: Abdomen soft, post op mildly tender and distended. No hepato- splenomegaly, or palpable masses. No guarding. Bowel sounds present. GENITOURINARY: Without palpable bladder distension. MUSCULOSKELETAL: Extremities without clubbing, cyanosis, or edema. No joint tenderness or effusion noted. No calf tenderness. No mottling or clubbing. LYMPHATICS: No palpable cervical or supraclavicular adenopathy. NEUROLOGICAL: Awake and alert. Motor and sensory grossly within normal limits. Follows commands. Clear speech. Moves all extremities. PSYCHIATRIC: No obvious anxiety/depression. no apparent hallucinations or other psychotic thought process. Laboratory Laboratory Tests Test 01/23/18 06:35 White Blood Count 15.2 Red Blood Count 4.00 Hemoglobin 11.9 Hematocrit 35.1 Mean Corpuscular Volume 87.7 Mean Corpuscular Hemoglobin 29.6 Mean Corpuscular Hemoglobin Concent 33.8 Red Cell Distribution Width 13.9 Platelet Count 207 Mean Platelet Volume 10.0 Neutrophils (%) (Auto) 82.7 Lymphocytes (%) (Auto) 9.4 Monocytes (%) (Auto) 7.7 Eosinophils (%) (Auto) 0.1 Basophils (%) (Auto) 0.1 Neutrophils # (Auto) 12.6 Lymphocytes # (Auto) 1.4 Monocytes # (Auto) 1.2 Eosinophils # (Auto) 0.0 Basophils # (Auto) 0.0 CBC Comment AUTO DIFF Differential Total Cells Counted 100 Neutrophils % (Manual) 57 Band Neutrophils % 17 Lymphocytes % 18 Monocytes % 8 Neutrophils # (Manual) 11.2 Differential Comment FINAL DIFF MANUAL Platelet Estimate NORMAL Platelet Morphology Comment ENLARGED Blood Urea Nitrogen 27 Creatinine 1.14 Random Glucose 181 Calcium Level 8.2 Sodium Level 136 Potassium Level 4.0 Chloride Level 103 Carbon Dioxide Level 25.9 Anion Gap 7 Estimat Glomerular Filtration Rate 49 Date/Time Source Procedure Growth Status 01/23/18 16:52 Blood Other Aerobic Blood Culture Pending Received 01/23/18 16:52 Blood Other Anaerobic Blood Culture Pending Received 01/21/18 04:32 Urine Clean Catch Urine Culture - Final Escherichia Coli Esbl Positive Complete Result Diagram: 01/23/18 0635 01/23/18 0635 Imaging Last Impressions Gall Bladder Ultrasound 01/21/18 0000 Signed Impressions: Service Date/Time: December 08:39 - CONCLUSION: 1. Gallbladder wall thickening and positive sonographic Watts's sign suggestive of acute cholecystitis. A hepatobiliary scan may be helpful to confirm cystic duct obstruction if clinical indicated. 2. Cholelithiasis. 3. Mild hepatomegaly. Jim Vilchis MD Abdomen/Pelvis CT 01/21/18 0000 Signed Impressions: Service Date/Time: December 03:57 - CONCLUSION: 1. Negative CT abdomen/pelvis with contrast. Dioni Ochoa MD Abdomen X-Ray 01/21/18 0000 Signed Impressions: Service Date/Time: December 00:43 - CONCLUSION: No dilated loops of small or large bowel. Dioni Ochoa MD Assessment and Plan Assessment and Plan Acute calculous cholecystitis sp lap cholecystectomy Asymptomatic bacteriuria ESBL + E.coli stop Ertapenem Shruti Gracia MD Jan 23, 2018 19:52
[2018-01-23] MEDS: MORPHINE SULFATE 2 MG/ML INJ IV PUSH PRN (22:34)
[2018-01-24] VITALS (10 sets, daily range): BP systolic 95–131; BP diastolic 56–65; PULSE 88–100; RESP 16–17; TEMP 97.3–98.6; O2SAT 90–94
[2018-01-24] MEDS: metroNIDAZOLE 500 MG INJ 100 ML IV SCH ×2 (00:29→13:14)
[2018-01-24] MEDS: oxyCODONE/ACETAMINOPHEN 10 MG/325 MG TAB PO PRN ×3 (02:05→15:28)
[2018-01-24] MEDS: SODIUM CHLOR 0.9% 1000 ML INJ 1,000 ML IV SCH ×3 (06:46→15:08)
[2018-01-24] MEDS: DOCUSATE SODIUM 50 MG/SENNA 8.6 MG TAB PO SCH (09:09)
[2018-01-24] MEDS: CIPROFLOXACIN 400 MG PREMIX 200 ML IV SCH ×2 (09:10→11:30)
[2018-01-24] MEDS: SODIUM CHLORIDE 0.9% FLUSH 10 ML FLUSH IV FLUSH SCH (09:10)
[2018-01-24] MEDS: INSULIN ASPART SUPPLEMENTAL SCALE SQ SCH ×2 (09:20→12:08)
--- NOTE | 2018-01-24 10:13 | HHI.PR ---
Subjective Subjective Notes doing ok, pain controlled with meds, tolerating diet Objective Vitals/I&O Vital Signs Date Time Temp Pulse Resp B/P (MAP) Pulse Ox O2 Delivery O2 Flow Rate FiO2 01/24/18 08:00 98.3 94 16 131/65 (87) 91 01/23/18 22:08 Room Air 01/23/18 10:30 21 01/22/18 17:00 3 Labs Laboratory Tests Test 01/24/18 01:49 Lactic Acid Level 0.7 Date/Time Source Procedure Growth Status 01/23/18 16:52 Blood Other Aerobic Blood Culture Pending Received 01/23/18 16:52 Blood Other Anaerobic Blood Culture Pending Received 01/21/18 04:32 Urine Clean Catch Urine Culture - Final Escherichia Coli Esbl Positive Complete Radiology Last 48 hours Impressions Gall Bladder Ultrasound 01/21/18 0000 Signed Impressions: Service Date/Time: December 08:39 - CONCLUSION: 1. Gallbladder wall thickening and positive sonographic Watts's sign suggestive of acute cholecystitis. A hepatobiliary scan may be helpful to confirm cystic duct obstruction if clinical indicated. 2. Cholelithiasis. 3. Mild hepatomegaly. Jim Vilchis MD Abdomen/Pelvis CT 01/21/18 0000 Signed Impressions: Service Date/Time: December 03:57 - CONCLUSION: 1. Negative CT abdomen/pelvis with contrast. Dioni Ochoa MD Abdomen X-Ray 01/21/18 0000 Signed Impressions: Service Date/Time: December 00:43 - CONCLUSION: No dilated loops of small or large bowel. Dioni Ochoa MD Abdomen: Non-distended, Post-op tenderness, BS normal Wound Wound : Wound Location: Abdomen Appearance: Clean & Dry A/P Problem List: (1) Right upper quadrant pain ICD Codes: R10.11 - Right upper quadrant pain Status: Acute (2) Positive Watts's Sign ICD Codes: R19.8 - Other specified symptoms and signs involving the digestive system and abdomen Status: Acute (3) Abnormal findings on imaging of biliary tract ICD Codes: R93.2 - Abnormal findings on diagnostic imaging of liver and biliary tract Status: Acute (4) Cholecystitis ICD Codes: K81.9 - Cholecystitis, unspecified Status: Acute (5) Abdominal pain ICD Codes: R10.9 - Unspecified abdominal pain Status: Acute (6) Diabetes mellitus ICD Codes: E11.9 - Type 2 diabetes mellitus without complications Assessment and Plan s/p lap anibal ok to DC from surgical standpoint fu in office this week with DR Ackerman - [phone] will sign off - please call if any questions or concerns. RX for pain meds on chart Problem Qualifiers (1) Abdominal pain: Qualified Codes: R10.9 - Unspecified abdominal pain Junior Tamayo MD Jan 24, 2018 10:13
[2018-01-24] MEDS ORDERED: CIPR500T2 PO (14:11)
[2018-01-24] MEDS ORDERED: METR-1 PO (14:11)
--- NOTE | 2018-01-24 14:12 | HHI.DCPOC ---
Discharge Care Plan Diagnosis: (1) Asymptomatic bacteriuria (2) Cholecystitis (3) Abdominal pain (4) Diabetes mellitus (5) S/P laparoscopic cholecystectomy Goals to Promote Your Health * To prevent worsening of your condition and complications * To maintain your health at the optimal level Directions to Meet Your Goals Take your medications as prescribed Follow your dietary instruction Follow activity as directed Keep your appointments as scheduled Take your immunizations and boosters as scheduled If your symptoms worsen call your PCP, if no PCP go to Urgent Care Center or Emergency Room Smoking is Dangerous to Your Health. Avoid second hand smoke Call the 24-hour hour crisis hotline for domestic abuse at Dao Moraes MD Jan 24, 2018 14:12
--- NOTE | 2018-01-24 14:22 | HHI.DS ---
Discharge Summary Admission Date Jan 21, 2018 at 10:14 Discharge Date: Jan 24, 2018 Admitting Diagnosis Cholecystitis; UTI (1) Diabetes mellitus ICD Code: E11.9 - Type 2 diabetes mellitus without complications Diagnosis: Secondary (2) Abdominal pain ICD Code: R10.9 - Unspecified abdominal pain Diagnosis: Principal Status: Acute (3) Cholecystitis ICD Code: K81.9 - Cholecystitis, unspecified Diagnosis: Principal Status: Acute Procedures 01/22/18 laparoscopic cholecystectomy Brief History - From Admission Patient is a 57-year-old female. Who woke up early yesterday morning and had some epigastric pain that was constant continuous all day Yesterday. She then took Tums, which did not help her. She has no history of gastritis. She does not take any omeprazole or anything like that. She has never had any issue with this before. Denies any pancreatitis. Denies any gallbladder issues prior to now. She denies any trauma. She has no diarrhea. Has not had any bowel movements yesterday. Pain is a burning severe and some nausea and some vomiting. Had some vomiting yesterday. Denies any surgical history patient has a history of diabetes mellitus with metformin and glyburide daily Was found to have cholecystitis on ultrasound and general surgery will be consult. We will keep her n.p.o. CBC/BMP: 01/23/18 0635 01/23/18 0635 Significant Findings Laboratory Tests Test 01/22/18 09:20 01/23/18 06:35 01/24/18 01:49 White Blood Count 18.1 TH/MM3 (4.0-11.0) 15.2 TH/MM3 (4.0-11.0) Neutrophils (%) (Auto) 88.9 % (16.0-70.0) 82.7 % (16.0-70.0) Lymphocytes (%) (Auto) 4.9 % (9.0-44.0) Neutrophils # (Auto) 16.0 TH/MM3 (1.8-7.7) 12.6 TH/MM3 (1.8-7.7) Lymphocytes # (Auto) 0.9 TH/MM3 (1.0-4.8) Monocytes # (Auto) 1.1 TH/MM3 (0-0.9) 1.2 TH/MM3 (0-0.9) Blood Urea Nitrogen 19 MG/DL (7-18) 27 MG/DL (7-18) Creatinine 1.53 MG/DL (0.50-1.00) 1.14 MG/DL (0.50-1.00) Random Glucose 309 MG/DL (74-106) 181 MG/DL (74-106) Albumin 3.3 GM/DL (3.4-5.0) Phosphorus Level 2.4 MG/DL (2.5-4.9) Alkaline Phosphatase 140 U/L (45-117) Aspartate Amino Transf (AST/SGOT) 53 U/L (15-37) Alanine Aminotransferase (ALT/SGPT) 54 U/L (10-53) Total Bilirubin 1.5 MG/DL (0.2-1.0) Sodium Level 134 MEQ/L (136-145) Estimat Glomerular Filtration Rate 35 ML/MIN (>89) 49 ML/MIN (>89) Hemoglobin A1c 8.4 % (4.3-6.0) Band Neutrophils % 17 % (0-6) Neutrophils # (Manual) 11.2 TH/MM3 (1.8-7.7) Platelet Morphology Comment ENLARGED (NORMAL) Calcium Level 8.2 MG/DL (8.5-10.1) Imaging Last Impressions Gall Bladder Ultrasound 01/21/18 0000 Signed Impressions: Service Date/Time: December 08:39 - CONCLUSION: 1. Gallbladder wall thickening and positive sonographic Watts's sign suggestive of acute cholecystitis. A hepatobiliary scan may be helpful to confirm cystic duct obstruction if clinical indicated. 2. Cholelithiasis. 3. Mild hepatomegaly. Jim Vilchis MD Abdomen/Pelvis CT 01/21/18 0000 Signed Impressions: Service Date/Time: December 03:57 - CONCLUSION: 1. Negative CT abdomen/pelvis with contrast. Dioni Ochoa MD Abdomen X-Ray 01/21/18 0000 Signed Impressions: Service Date/Time: December 00:43 - CONCLUSION: No dilated loops of small or large bowel. Dioni Ochoa MD PE at Discharge General: No acute distress. Heart: Regular rate and rhythm. No murmur. Lungs: Clear to auscultation bilaterally. No wheezes, rales, or rhonchi. Breathing is nonlabored. Abdomen: Soft, appropriately tender to palpation, mildly distended. Extremities: No lower extremity edema. Psych: Alert and oriented. Pt update on day of discharge Patient states that she feels much better today. She is still having some pain at the surgical site, but much less today. Denies nausea or vomiting. Denies dysuria or increased urinary frequency. She wants to go home. I spoke with Dr. Gracia, infectious disease, who cleared the patient for discharge with oral antibiotics. Hospital Course Patient was admitted for further management of acute cholecystitis. General surgery was consulted. She was continued on IV antibiotics. Laparoscopic cholecystectomy was done. Patient had a routine postoperative course and was cleared for discharge by general surgery. Urinalysis showed ESBL positive E. coli. Infectious disease was consulted. Antibiotics were adjusted. Patient was also cleared for discharge by infectious disease. Pt Condition on Discharge: Stable Discharge Disposition: Discharge Home Discharge Time: > 30 minutes Discharge Instructions DIET: Follow Instructions for: Diabetic Diet Activities you can perform: Regular-No Restrictions Follow up Referrals: Surgical - 02/01/18 with Richi Ackerman MD Appt set for February 01 at 1PM New Medications: Ciprofloxacin (Ciprofloxacin) 500 Mg Tab 500 MG PO BID for Infection, #10 TAB 0 Refills Metronidazole (Flagyl) 500 Mg Tab 500 MG PO TID for Infection, #15 TAB 0 Refills Oxycodone HCl/Acetaminophen (Oxycodone-Acetaminophen 5-325) 5 Mg-325 Mg Tablet 1-2 TAB PO Q6H PRN for PAIN SCALE 1 TO 10, #30 TAB Continued Medications: Famotidine (Pepcid) 20 Mg Tab 20 MG PO BID, #20 TAB 0 Refills Glimepiride (Glimepiride) 2 Mg Tab 2 MG PO BIDAC for Blood Sugar Management, #60 TAB 0 Refills Ondansetron Odt (Zofran Odt) 4 Mg Tab 4 MG SL Q6HR PRN for Nausea/Vomiting, #12 TAB 0 Refills Discontinued Medications: Metformin (Metformin) 500 Mg Tab 500 MG PO BIDPC for Blood Sugar Management, #60 TAB 0 Refills Stoverink,Dao D. MD Jan 24, 2018 14:22
[2018-01-24] MEDS ORDERED: OXYC1TAB63 PO (14:23)
[2018-01-24 15:57] LABS: AUTOMATED NEUTROPHIL # 9.4 TH/MM3 (1.8-7.7); BASOPHIL # 0.1 TH/MM3 (0-0.2); BASOPHIL % 0.5 % (0.0-2.0); EOSINOPHIL # 0.2 TH/MM3 (0-0.4); EOSINOPHIL % 1.8 % (0.0-4.0); HEMATOCRIT 35.8 % (35.0-46.0); HEMOGLOBIN 11.9 GM/DL (11.6-15.3); LYMPH % 11.6 % (9.0-44.0); LYMPHOCYTE # 1.4 TH/MM3 (1.0-4.8); MEAN CORPUSCULAR HEMOGLOBIN 29.3 PG (27.0-34.0); MEAN CORPUSCULAR HGB CONC 33.3 % (32.0-36.0); MONO % 8.8 % (0.0-8.0); MONOCYTE # 1.1 TH/MM3 (0-0.9); NEUT % 77.3 % (16.0-70.0); PLATELET COUNT 244 TH/MM3 (150-450); RED BLOOD COUNT 4.07 MIL/MM3 (4.00-5.30); RED CELL DISTRIBUTION WIDTH 14.1 % (11.6-17.2); WHITE BLOOD COUNT 12.2 TH/MM3 (4.0-11.0)
[2018-01-24 16:15] LABS: BICARBONATE 27.5 MEQ/L (21.0-32.0); CALCIUM 8.2 MG/DL (8.5-10.1); CREATININE 0.77 MG/DL (0.50-1.00)
== END 2018-01-24 15:41 | disposition home or self-care (01) | DRG 418 ==
LOC: NEPE 21:02 → NEDA 01-21 10:14 → NEPFCDU 01-21 14:41 → N07B 01-22 15:08 → N06A 01-22 17:07
PROVIDERS: ADMIT Family Medicine; ATTEND Family Medicine
PROC: 0FT44ZZ Resection of Gallbladder, Percutaneous Endoscopic Approach (ICD-10-PCS; principal; 2018-01-22 12:37)
DX: K80.12 Calculus of gallbladder with acute and chronic cholecystitis without obstruction (principal); N39.0 Urinary tract infection, site not specified; B96.20 Unspecified Escherichia coli [E. coli] as the cause of diseases classified elsewhere; E11.9 Type 2 diabetes mellitus without complications; Z16.12 Extended spectrum beta lactamase (ESBL) resistance; Z79.84 Long term (current) use of oral hypoglycemic drugs
CPT/HCPCS: 74019; 74177; 76705; 80048; 80053; 81001; 82948; 83036; 83605; 83690; 83735; 84100; 84439; 84443; 84484; 85007; 85025; 85027; 85610; 87040; 87077; 87086; 87186; 88304; 93005; 94150; 96361; 96365; 96375; 96376; J0131; J0330; J0744; J1100; J1200; J1335; J1815; J1885; J2270; J2370; J2405; J2710; J3010; J7030; J7050; J7120; Q9963; Q9967

== ENCOUNTER 2018-03-15 18:38 | Emergency (ER) | payer MEDICAID, OTHER ==
[~2018-03-15] VITALS: Ht 154.9 cm; Wt 81.4 kg
[~2018-03-15 18:38] MED LIST: CIPR500T2 PO; FAMO1TAB37 PO; GLIM2TAB PO; METR-1 PO; OXYC1TAB63 PO; ZOFR4TAB3 SL
[2018-03-15 18:52] VITALS: BP 136/65; PULSE 78; RESP 16; TEMP 98.2; O2SAT 97
[2018-03-15] MEDS ORDERED: METF500T PO (19:07)
--- NOTE | 2018-03-15 19:10 | PD ---
HPI Chief Complaint: Fall Time Seen by Provider: 19:03 Travel History International Travel<30 days: No Contact w/Intl Traveler<30days: No Traveled to known affect area: No History of Present Illness HPI This is a 57-year-old female who presents today with complaints of left knee pain, left shoulder pain, left wrist pain, after slipping on a wet floor at [facility]. Patient states that there was a leaky roof and the floor was wet. She reports slipping and falling on her left side. She denies any numbness or tingling of her arm or leg. She reports tenderness below and on the medial portion of her left knee. She also reports pain to the top of her shoulder and in her wrist. There are no other injuries reported. PFSH Past Medical History Arthritis: No Asthma: No Autoimmune Disease: No Blood Disorders: No Anxiety: No Depression: No Heart Rhythm Problems: No Cancer: No Cardiovascular Problems: No High Cholesterol: No Chemotherapy: No Chest Pain: No Congestive Heart Failure: No COPD: No Cerebrovascular Accident: No Diabetes: Yes (type 2) Patient Takes Glucophage: Yes Diminished Hearing: No Endocrine: Yes GERD: No Genitourinary: No Hiatal Hernia: No Immune Disorder: No Kidney Stones: No Musculoskeletal: No Neurologic: No Psychiatric: No Reproductive: No Respiratory: No Migraines: No Radiation Therapy: No Renal Failure: No Seizures: No Sickle Cell Disease: No Sleep Apnea: No Thyroid Disease: No Ulcer: No Tetanus Vaccination: > 5 Years Influenza Vaccination: Yes ?: Not Past Surgical History Abdominal Surgery: Yes (lap anibal) AICD: No Arteriovenous Shunt: No Cardiac Surgery: No Cholecystectomy: Yes Ear Surgery: No Endocrine Surgery: No Eye Surgery: No Genitourinary Surgery: No Gynecologic Surgery: No Insulin Pump: No Joint Replacement: No Neurologic Surgery: No Oral Surgery: No Pacemaker: No Thoracic Surgery: No Other Surgery: Yes (D&C) Social History Alcohol Use: No Tobacco Use: No Substance Use: No Allergies-Medications (Allergen,Severity, Reaction): Coded Allergies: Penicillins (Verified Allergy, Unknown, 03/15/18) pt states its been decades, unsure of reaction. Reported Meds & Prescriptions Reported Meds & Active Scripts Active Arthrotec 50 (Diclofenac-Misoprostol) 50-0.2 Mg Tab 1 Tab PO BID Reported Metformin (Metformin HCl) 500 Mg Tab 500 Mg PO BIDPC Glimepiride 2 Mg Tab 2 Mg PO BIDAC Review of Systems Except as stated in HPI: all other systems reviewed are Neg Eyes: No: Blurred Vision, Photophobia HENT: No: Headaches, Neck Pain Cardiovascular: No: Chest Pain or Discomfort Musculoskeletal: Positive: Limited ROM (Secondary to pain.), Pain (Left shoulder, left wrist, left knee.), No: Edema Neurologic: No: Headache, Paresthesia, Sensory Disturbance Physical Exam Narrative GENERAL: Well-nourished, well-developed patient, in no acute respiratory distress. SKIN: Focused skin assessment warm/dry. HEAD: Normocephalic/. EYES: No scleral icterus. No injection or drainage. NECK: Supple, trachea midline. MUSCULOSKELETAL: 70 patient's left shoulder, she has good range of motion. She has point tenderness on the superior portion of her shoulder. There is no bony deformity noted. Patient also has subjective tenderness on her left wrist. She is able to flex and extend the wrist. No bony instability or deformity noted. No snuffbox tenderness. Patient has a contusion noted in her left inferior patellar area of her left knee. There is no crepitance or deformity. She was able to flex it however it was tender on flexion extension. There is no ligamentous instability. There is good palpable pulses distally. BACK: Nontender without obvious deformity. No CVA tenderness. Data Data Last Documented VS Vital Signs Date Time Temp Pulse Resp B/P (MAP) Pulse Ox O2 Delivery O2 Flow Rate FiO2 03/15/18 18:52 98.2 78 16 136/65 (88) 97 Orders Orders Knee, Ltd (1 Or 2vws) (03/15/18 19:06) Shoulder, Complete (>2vws) (03/15/18 19:06) Wrist, Limited (Ap&Lat) (03/15/18 19:06) [facility] Medical Decision Making Medical Screen Exam Complete: Yes Emergency Medical Condition: Yes Differential Diagnosis Left shoulder fracture versus contusion, left wrist fracture versus contusion, left knee fracture versus contusion. Narrative Course 57-year-old female status post slip and fall at [facility]. Patient reports there was wet floor when she slipped on. Patient has pain in left shoulder left wrist and left knee. X-rays of all 3 show no evidence of acute bony injury. The patient has more pain in her left shoulder than in her knee. She has been placed on the left shoulder sling. She will be given a prescription for Arthrotec for pain. Splint told to take it for at least a week. She is instructed to remove her arm out of sling 2-3 times daily to small circular motions to keep the shoulder from freezing. If she still painful after 1 week, she should follow-up with an orthopedic surgeon. Be given the name of the orthopedic surgeon covering today. Diagnosis Primary Impression: Contusion of left shoulder Additional Impressions: Contusion of left wrist Contusion of left knee Slip and fall on wet floor Additional Instructions: Ice 2-3 times daily 1-2 days, then moist heat. If pain still persists after 7 days, follow-up with orthopedic physician. Take arm out of sling 2-3 times daily to keep the shoulder from freezing. Small circular motions for 100 circulations each time. Med/Other Pt SpecificInfo: Prescription(s) given Scripts Diclofenac-Misoprostol (Arthrotec 50) 50-0.2 Mg Tab 1 TAB PO BID for Pain Management, #30 TAB 0 Refills Prov: Ashvin Garcia MD 03/15/18 Disposition: 01 DISCHARGE HOME Condition: Stable Ashvin Garcia MD March 15, 2018 19:10
--- NOTE | 2018-03-15 19:49 | RADRPT ---
EXAM DATE/TIME: 03/15/2018 19:18 [facility] COMPARISON: No previous studies available for comparison. INDICATIONS : Anterior left knee pain after slipping and falling today. MEDICAL HISTORY : None. SURGICAL HISTORY : None. ENCOUNTER: Initial ACUITY: 1 day PAIN SCORE: 5/10 LOCATION: Left knee. FINDINGS: Two view examination of the left knee demonstrates no evidence of fracture or dislocation. Bony mine ralization is normal. The suprapatellar soft tissues have a normal configuration. CONCLUSION: Unremarkable limited examination of the left knee. Daren Sharpe MD on March 15, 2018 at 19:46 Board Certified Radiologist. This report was verified electronically.
--- NOTE | 2018-03-15 19:50 | RADRPT ---
EXAM DATE/TIME: 03/15/2018 19:18 [facility] COMPARISON: No previous studies available for comparison. INDICATIONS : Left shoulder pain after slipping and falling today. MEDICAL HISTORY : None. SURGICAL HISTORY : None. ENCOUNTER: Initial ACUITY: 1 day PAIN SCORE: 7/10 LOCATION: Left shoulder. FINDINGS: There is no evidence of fracture or dislocation. There is arthritic change most significantly in the a.c. joint. There is calcific tendinitis of the rotator cuff. The adjacent clavicle and ribs appear i ntact. CONCLUSION: No acute bony injury Daren Sharpe MD on March 15, 2018 at 19:47 Board Certified Radiologist. This report was verified electronically.
--- NOTE | 2018-03-15 19:51 | RADRPT ---
EXAM DATE/TIME: 03/15/2018 19:18 [facility] COMPARISON: No previous studies available for comparison. INDICATIONS : Medial and lateral left wrist pain after slipping and falling today. MEDICAL HISTORY : None. SURGICAL HISTORY : None. ENCOUNTER: Initial ACUITY: 1 day PAIN SCORE: 3/10 LOCATION: Left wrist. FINDINGS: Two view examination of the left wrist demonstrates no soft tissue swelling, dislocation, or fracture . The joint spaces are maintained. Bony mineralization is normal. CONCLUSION: Unremarkable limited examination of the left wrist. Daren Sharpe MD on March 15, 2018 at 19:48 Board Certified Radiologist. This report was verified electronically.
[2018-03-15] MEDS ORDERED: ARTHTAB2 PO (20:11)
== END 2018-03-15 20:36 | disposition home or self-care (01) ==
LOC: PHEFT 18:38
DX: S40.012A Contusion of left shoulder, initial encounter (principal); S60.212A Contusion of left wrist, initial encounter; S80.02XA Contusion of left knee, initial encounter; E11.9 Type 2 diabetes mellitus without complications; W01.0XXA Fall on same level from slipping, tripping and stumbling without subsequent striking against object, initial encounter; Y92.512 Supermarket, store or market as the place of occurrence of the external cause; Z88.0 Allergy status to penicillin; Z79.899 Other long term (current) drug therapy
CPT/HCPCS: 73030; 73100; 73560; 99284

== ENCOUNTER 2018-12-07 09:20 | Observation (INO) ==
[2018-12-07] MEDS ORDERED: Metoprolol Tartrate 25 MG Tablet PO ONE (09:43)
[2018-12-07] MEDS ORDERED: Chlorhexidine Gluconate 2% 1 Pack (2 Cloths) TOPICAL ONE (09:43)
[2018-12-07] MEDS ORDERED: Sodium Chlor 0.9% Inj 500 ML IV.SIG SCH (10:00)
[2018-12-07] MEDS ORDERED: Propofol Inj 500 MG/50 ML Vial ONE (10:42)
[2018-12-07] MEDS ORDERED: Dexmedetomidine Inj 200 MCG/2 ML Vial ONE (10:42)
[2018-12-07] MEDS ORDERED: SUFentanil Inj 250 MCG/5 ML Ampul ONE (11:25)
[2018-12-07] MEDS ORDERED: Phenylephrine/NS 1000 MCG/10ML Syringe IV.PUSH ONE (11:35)
[2018-12-07] MEDS ORDERED: Sodium Chlor 0.9% Inj 250 ML IV.CONT ONE (11:35)
[2018-12-07] MEDS ORDERED: Lidocaine PF 1% Inj 5 ML Syringe INFILTRATN ONE (11:35)
[2018-12-07] MEDS ORDERED: Sodium Chlor 0.9% Inj 500 ML IV.CONT ONE (11:35)
[2018-12-07] MEDS ORDERED: ceFAZolin 2 GM Premix Inj 2 GM/50 ML PIGGYBACK IV.SIG SCH (13:15)
[2018-12-07] MEDS ORDERED: Aluminum/Magnesium/Simethacone Susp 30 ML UDC PO PRN (15:32)
[2018-12-07] MEDS ORDERED: Bisacodyl 10 MG Supp RECTAL PRN (15:32)
[2018-12-07] MEDS ORDERED: Post-op Orders (for Pharmacy) OTHER STA (15:32)
[2018-12-07] MEDS ORDERED: Morphine Inj 4 MG/ML Vial IV.PUSH PRN (15:32)
--- NOTE | 2018-12-07 15:32 | P.BOP ---
Date of procedure: 12/07/18 Procedure: 1. C5-C6, C6-C7 ACDF 2. Anterior instrumentation C5, C6, C7 3. Interbody cages C5-C6 and C6-C7 4. Autograft 5. Allograft Implants: Titan 6 and 7mm cages Precision Simplicity anterior plate and screws Anesthesia: GETA Surgeon: Roz Solorzano MD Estimated blood loss (mL): 50 Pathology: none sent Condition: stable Disposition: PACU
[2018-12-07] MEDS ORDERED: Melatonin 5 MG Tablet PO PRN (15:35)
[2018-12-07] MEDS ORDERED: *morphine SULFATE 4 MG/ML PERIprocedure ONLY ONE ×2 (16:06→16:16)
[2018-12-07] MEDS ORDERED: fentaNYL Citrate Inj 100 MCG/2 ML Ampul ONE (17:21)
[2018-12-07] MEDS ORDERED: *HYDROmorphone PF Inj 1 MG/ML Ampul PERIprocedural Use ONLY ONE (17:44)
--- NOTE | 2018-12-07 18:40 | XR ---
EXAM DATE: 12/07/2018 6:20 PM EST AGE/SEX: 58 years / Female INDICATIONS: C5-6, C6-7 Fusion. CLINICAL DATA: This is the patient's initial encounter. Patient reports that signs and symptoms have been present for 1 day and indicates a pain score of Nonresponsive. MEDICAL/SURGICAL HISTORY: Non-responsive. . C5-6, C6-7 Fusion. COMPARISON: No prior exams available for comparison. FINDINGS: 3 spot intraoperative fluoroscopic views of the cervical spine demonstrate anterior cervical discecto my and intervertebral fusion hardware placement at C5-C7. CONCLUSION: Postsurgical changes. Electronically signed by: Austin Ann MD Board Certified Radiologist 12/07/2018 6:39 PM EST
[2018-12-07] MEDS: Senna/Docusate Sodium 8.6/50 MG Tablet PO SCH (20:27)
[2018-12-07] MEDS: Glimepiride 2 MG Tablet PO SCH (20:27)
[2018-12-07] MEDS: Multivitamin/Minerals Therapeutic Tablet PO SCH (20:27)
[2018-12-08 00:50] VITALS: RESP 18; O2SAT 92
[2018-12-08 05:23] VITALS: BP 130/64; PULSE 80; TEMP 97.9
--- NOTE | 2018-12-08 07:11 | P.PNOP ---
Subjective Interval history: Patient resting comfortably this morning. Complains of mild dysphagia but tolerating liquids well. Denies any new numbness or tingling. Denies any significant or appreciable radiculopathy Physical Exam Vital signs: Vital Signs 12/07/18 10:04 12/07/18 15:38 12/07/18 15:45 Temperature 97.9 F 97.7 F Pulse Rate 74 96 H 94 H Respiratory Rate 18 14 14 Blood Pressure 144/74 H 139/60 128/63 Pulse Oximetry 99 100 100 12/07/18 16:00 12/07/18 16:15 12/07/18 16:30 Temperature Pulse Rate 89 87 92 H Respiratory Rate 14 13 20 Blood Pressure 147/70 H 141/63 H 120/60 Pulse Oximetry 100 100 97 12/07/18 17:30 12/07/18 18:00 12/07/18 20:00 Temperature 98.4 F 97.6 F Pulse Rate 100 H 98 H 106 H Respiratory Rate 18 20 15 Blood Pressure 124/64 108/58 L 132/72 Pulse Oximetry 96 95 98 12/08/18 00:00 12/08/18 02:26 12/08/18 04:00 Temperature 98.4 F 97.9 F Pulse Rate 98 H 80 Respiratory Rate 18 18 18 Blood Pressure 110/67 130/64 Pulse Oximetry 92 L 92 L Intake & Output 12/07/18 12/08/18 12/08/18 18:59 06:59 18:59 Intake Total 1775 / 1775 1540 / 1540 Output Total 250 / 250 1400 / 1400 Balance 1525 / 1525 140 / 140 Weight 88.7 kg 89 kg Intake: IV 1300 / 1300 LR 1000 mL Inj 1,000 ML @ 30 1000 / 1000 mls/hr IV.SIG .Q24H JIM Rx#: [id number] Ancef Inj 1,000 MG In NS Inj 300 / 300 100 ML @ 200 mls/hr IV.SIG Q6H JIM Rx#:[id number] Oral 125 / 125 240 / 240 Anesthesia Amount 1650 / 1650 Output: Estimated Blood Loss 50 / 50 Urine Amount (Catheter) 200 / 200 1400 / 1400 Indwelling Urethral Catheter 200 / 200 1400 / 1400 Other: Date of Last Bowel Movement 12/06/18 Weight On Admission 88.7 kg Narrative: Awake, alert, no acute distress Cervical collar in place. Dressing and [place] drain removed. No significant swelling. New dressing applied. Bilateral upper extremities: 5 out of 5 strength throughout deltoids, biceps, triceps, records management analyst and intrinsics. - Urinary Catheter Management Indwelling Urethral Catheter Cath placed during this visit: yes, but has since been removed by the nurse Reason for continuing: Decision to DC catheter Insertion date: 12/07/18 Insertion time: 12:00 Removal date: 12/08/18 Removal time: 06:00 Results - Labs Laboratory Results - last 24 hr 12/07/18 20:23 POC Glucose 200 H - Imaging Impressions Cervical Spine X-Ray 12/07/18 00:00 CONCLUSION: Postsurgical changes. Assessment and Plan - Assessment and Plan 58-year-old female, postop day 1 status post C5-C7 ACDF 1. Cervical collar at all times 2. Dressing changed and [place] drain removed this may remain in place until follow-up provided it stays clean and dry 3. Pain medication sent to pharmacy 4. Plan for discharge home this morning. Scheduled follow-up in approximately 2 weeks. [employer] Prescription Drug Monitoring Database has been queried and verified prior to prescribing the controlled substance. Acute pain exception: This patient has normal, predicted, physiological, and time limited response to an adverse mechanical stimulus associated with surgery , trauma, or acute illness as described in my notes. There is a lack of alternative treatment options other than to include the prescribed narcotic treatment for this condition.
[2018-12-08] MEDS: Multivitamin/Minerals Therapeutic Tablet PO SCH (09:17)
[2018-12-08] MEDS: Glimepiride 2 MG Tablet PO SCH (09:18)
[2018-12-08] MEDS: Senna/Docusate Sodium 8.6/50 MG Tablet PO SCH (09:18)
--- NOTE | 2018-12-20 13:02 | P.OP ---
Date of procedure: 12/07/18 Procedure: 1. C5-C6, C6-C7 anterior cervical discectomy for purposes of fusion 2. C5-C6, C6-C7 anterior cervical arthrodesis 3. Anterior instrumentation C5, C6, C7 4. Placement of interbody cages C5-C6 and C6-C7 6. Placement of autograft, anterior iliac crest 7. Placement of allograft, morselized Implants: Titan 6 and 7mm cages Precision Simplicity anterior plate and screws Anesthesia: GETA Surgeon: Roz Solorzano MD Estimated blood loss (mL): 50 Pathology: none sent Operation and Findings: Indications for procedure: Patient is a 58-year-old female who presented to my office with signs and symptoms consistent with cervical radiculopathy and associated cervical stenosis at C5-6 and C6-7. Options of management including nonoperative versus operative care were discussed with the patient. Discussion of surgical intervention the form of anterior cervical decompression and instrumented fusion C5-C7 with possible iliac crest autograft, possible allograft. Risks of surgery, possible benefits and alternative treatment options were discussed with the patient. At this time the patient wished to proceed with the above-mentioned procedure. Description of procedure: Patient was brought back to the operating room where general anesthesia then ensued. Neuromonitoring leads were placed along with a urinary catheter. The patient was carefully positioned supine on operating room table with all bony prominences well padded. The arms were taped distally to allow appropriate imaging. Patient was prepped and draped in standard sterile fashion. C-arm views were used to localize site for incision. Preoperative antibiotics were given within 1 hour of incision. A timeout was performed to identify the correct patient, sides, sites and procedures to be performed. Approximately 3cm transverse incision was made in the lower skin crease on the left side. A standard Maldonado-Magana approach was performed with dissection carried out medial to the sternocleidomastoid and medial to the carotid sheath. Blunt finger sweep allow for palpation down to the anterior aspect of the spine. An appendiceal retractor was placed. The prevertebral fascia was split longitudinally. A pre-bent needle was then inserted into the C5-6 disc space and confirmed to be at the appropriate level based on C-arm guidance. The longus coli was then mobilized off the midline over the bodies of C5, C6 and C7 and a self-retaining retractor was then placed. Once the retractor was in place, [place] pins were then placed into the body of C5 and C6. Distraction was carried out. Discectomy was performed at C5-6 with combination of curettes and pituitary rongeurs and a high-speed bur. Backside decompression was performed with high-speed bur such that the medial aspect of the uncinate and all osteophytic material were removed. This was performed until all nuclear and cartilaginous material was removed from each endplate and compressive osteophytes were removed. The PLL was then removed with the use of curved curettes and Kerrisons. This was performed out laterally towards the foramen until a curved curette was able to be passed out the foramen without difficulty. The underlying dura was found to be free of any compression at this time. Copious irrigation was performed and hemostasis achieved with thrombostatic agent. Cages were sized up to a size 6 at the C5-6 levels. At this time, I turned my attention to obtaining iliac crest autograft. The left iliac crest had been prepped along with the neck prior to the start of procedure. A small stab incision was made with an 11 blade over the anterior iliac crest approximately 2 cm posterior to the ASIS. The bone harvesting trocar was then impacted into the iliac crest. Once the harvesting trocar was passed the cortical bone and into cancellus bone, the center sleeve was removed and the trocar advanced and turned and advanced to allow for course of bone to be harvested. This was then removed and the cancellus bone core removed from the trocar. The trocar was then reinserted several times within the same cortical window but redirected in different directions to allow for cancellus bone course to be removed. This was performed a total of 4 times. The cage was filled with autograft mixed with allograft. This was then impacted into the disc space and distraction was released. The [place] pin was removed from the C5 level and placed into the C7 level. Distraction was then performed across the C6-7 disc space. Discectomy was then carried out at the C6 -7 level with pituitary rongeurs, curettes and high-speed bur. Again backside decompression was performed with high-speed bur such that the medial aspect of the uncinate and all osteophytic material were removed. The PLL was then removed with the use of Curettes and Kerrisons. Again this was carried out laterally to ensure the foramen were free of compression. The underlying dura and foramen appeared to be free of any compression and copious irrigation was performed. Hemostasis was again achieved. The cage was then sized up again to a size 7 at the C6-7 level. The cage was packed on the back table with autograft and allograft. This was then impacted into the disc space and distraction was let down and [place] pins removed. Both cages were found to be highly stable and well positioned on C-arm. Neuro monitoring was without any adverse signal changes at this time. An anterior plate was then sized and placed anteriorly over the C5, C6, and C7 vertebral bodies. Screws were then placed bilaterally into C5, C6 and C7. All screws obtained good purchase. The screws were locked down and then final tightened. Final radiographs demonstrated hardware was in appropriate position on both AP and lateral radiographs with good sikh of cervical lordosis and disc space height. Copious irrigation was performed. Hemostasis was achieved with thrombostatic agent and bipolar electrocautery. A [place] drain was then placed into the incision. The platysmal layer was reapproximated with running 2-0 Vicryl suture. The subcutaneous tissue was closed with 3-0 Vicryl and the subcuticular layer closed with 4-0 Monocryl suture. Mastisol and Steri- Strips were then applied. Sterile dressings were placed. A C collar was then placed. Patient was then awoken from general anesthesia without complication. It should be noted that the patient remained hemodynamically stable throughout the procedure without any adverse neuromonitoring signal changes.
== END 2018-12-08 11:28 | disposition home or self-care (01) ==
LOC: HSDC 09:20 → HSDI 09:20 → N06 18:32
PROVIDERS: ADMIT Orthopaedic Surgery Orthopaedic Surgery of the Spine; ATTEND Orthopaedic Surgery Orthopaedic Surgery of the Spine
CPT/HCPCS: 72040; 76000; 82948; 82962; 94150; 96361; 96365; 96366; 96376; C1713; G0378; J0131; J0690; J1100; J1170; J1580; J2250; J2270; J2370; J2405; J2704; J3010; J3370; J7040; J7050; J7120; L0150; L0172